=== PATIENT | female | born 1970 | race Caucasian/White ===

== ENCOUNTER 2021-09-28 12:54 | Emergency (ER) | payer BC, SELFPAY ==
[2021-09-28 13:14] VITALS: BP 143/91; PULSE 85; RESP 20; TEMP 36.2; O2SAT 96; BMI 30.7
--- NOTE | 2021-09-28 13:55 | ED_ITS ---
HPI - Headache General Chief Complaint: Headache/Migraine Stated Complaint: Headache for a week Time Seen by Provider: 09/28/21 13:15 History of Present Illness HPI Narrative: This 50-year-old female comes in reporting headache over the past week. She states that she does get headaches here in there but this 1 has persisted. She does not report any fever or neurologic deficit. She has tried home remedies without much relief. Related Data Home Medications Medication Instructions Recorded Confirmed fluoxetine 40 mg capsule mg 09/28/21 lamotrigine 200 mg tablet mg 09/28/21 Allergies Allergy/AdvReac Type Severity Reaction Status Date / Time prochlorperazine Allergy Verified 09/28/21 13:19 [From Compazine] Review of Systems Status of ROS: Reports: 10 or more systems reviewed and unremarkable except as noted in History and below Narrative: Constitutional: No fevers, no weight gain or loss. Eyes: No discharge. No vision changes. HENT: No congestion, no sore throat, no ear pain. Cardiovascular: No chest pain, no palpitations. Respiratory: No shortness of breath, no wheezes, no cough. Gastrointestinal: No abdominal pain, no vomiting, no diarrhea. Genitourinary: No dysuria, no hematuria. Musculoskeletal: Normal range of motion. Skin: No rashes, no pruritis. Neurological: No dizziness, weakness, sensory change, speech change. Endo/Heme/Allergies: No bruising or bleeding. No polydipsia. Pysch: no suicidality, no anxiety, no insomnia. All other systems reviewed and are negative. [facility] Medical History (Updated 09/28/21 @ 16:47 by Howard Herron MD) delivery delivered No significant past medical history 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 Smoking Status: Never smoker Do you use any of these nicotine containing products: None Second hand tobacco smoke exposure: No How often do you have a drink containing alcohol: 2-4 times a month How many standard drinks containing alcohol do you have on a typical day: 1 or 2 How often do you have six or more drinks on one occasion: Never AUDIT-C Alcohol total score: 2 Non-prescribed substance use: denies use Exam Narrative: Exam Narrative: Constitutional: Well-developed, well-nourished, no acute distress. HEENT: Normocephalic, atraumatic. Neck: Normal range of motion. Nontender. Supple. Heart: Regular. No murmurs. Normal rate. Intact distal pulses. Lungs: Clear to auscultation. No chest discomfort. No wheezes, rhonchi, or rales. Abdomen: Normal bowel sounds. Nontender. No rebound tenderness. Genitalia: Deferred. Back: No midline tenderness. Normal range of motion. Extremities: Normal range of motion. No injury. Skin: Intact. No rash. Warm. No erythema or pallor. Neurologic: No altered sensation. No weakness. Alert and oriented. Psychiatric: No suicidality. No anxiety or depression. No insomnia. Nursing notes and vitals signs are reviewed. Const: Vital Signs, click to edit/add: Vital Signs - 24 hr 09/28/21 13:14 09/28/21 14:37 09/28/21 15:26 Temperature 97.2 F L Pulse Rate [Right Pulse Oximeter] 85 62 73 Respiratory Rate 20 14 18 Blood Pressure [Ri ght Upper Arm] 143/91 H 105/63 105/63 Pulse Oximetry 96 92 09/28/21 16:31 Temperature Pulse Rate [Right Pulse Oximeter] 69 Respiratory Rate 18 Blood Pressure [Ri ght Upper Arm] 105/63 Pulse Oximetry 95 Course Vital Signs Vital signs: Initial Vital Signs Temperature 97.2 F L 09/28/21 13:14 Temperature Source Temporal Artery Scan 09/28/21 13:14 Pulse Rate 85 09/28/21 13:14 Pulse Rhythm 09/28/21 13:14 Respiratory Rate 20 09/28/21 13:14 Blood Pressure 143/91 H 09/28/21 13:14 Blood Pressure Mean 108 09/28/21 13:14 Pulse Oximetry 96 09/28/21 13:14 Oxygen Delivery Method 09/28/21 13:14 Vital Signs Temperature 97.2 F L 09/28/21 13:14 Pulse Rate 85 09/28/21 13:14 Respiratory Rate 20 09/28/21 13:14 Blood Pressure 143/91 H 09/28/21 13:14 Pulse Oximetry 96 09/28/21 13:14 Temperature 97.2 F L 09/28/21 13:14 Pulse Rate 69 09/28/21 16:31 Respiratory Rate 18 09/28/21 16:31 Blood Pressure 105/63 09/28/21 16:31 Pulse Oximetry 95 07/11/22 16:31 MDM - Headache MDM Narrative Medical decision making narrative: This patient comes in with persistent headache over the past week. She is not showing any neurologic deficits and does have a history of headache. Imaging and lab studies are not mandatory at this time. The patient declined any of those type of studies. An IV was established where she received IV doses of Zofran 4 mg, Toradol 30 mg, and Benadryl 50 mg. This brought some relief but it was minimal. She states that her headache went from a 7 to a 6 out of severity. She then received 20 mg of ketamine intravenously infused over 20-30 minutes. At the completion of this treatment she states that her headache was at 1/10 in severity. She is okay to be discharged home. Discharge Plan Discharge Clinical Impression: Headache Patient Disposition: Home, Self-Care Condition: Improved Instructions: Acute Headache (ED) Additional Instructions: Headache. Use [id number] medicines as needed and directed. Follow up with MD or return if recurrent or worsening symptoms happen. Prescriptions: No Action fluoxetine 40 mg capsule 0RF lamotrigine 200 mg tablet 0RF Follow Up/Referrals: Provider,Not a Local [Primary Care Provider] - Stand Alone Forms: [employer] Info Instructions
[2021-09-28] MEDS: KETOROLAC 30 MG/ML inj IVP (14:16)
[2021-09-28] MEDS: 0.9 % SODIUM CHLORIDE 1000 ml 1,000 ML IV (14:17)
[2021-09-28] MEDS: ONDANSETRON 2 MG/ML inj 4 MG IVP (14:17)
[2021-09-28] MEDS: METHYLPREDNISOLONE SOD SUCC 62.5 MG/ML (125) 125 MG IVP (14:17)
--- NOTE | 2021-09-28 14:30 | ED.NURSE ---
Placed iv IN LEFT HAND. during insertion patient became lightheaded, HR dropped to 45, BP 87/50. Fluids infusing, will wait to see patient feel better prior to starting mediations.
[2021-09-28 14:37] VITALS: BP 105/63; PULSE 62; RESP 14; O2SAT 92
[2021-09-28 15:26] VITALS: BP 105/63; PULSE 73; RESP 18
[2021-09-28] MEDS: KETAMINE HCL 20 MG in 0.9 % SODIUM CHLORIDE 100 ml 100 ML 300.6 MG IVPB (16:19)
[2021-09-28] MEDS: diphenhydrAMINE 50 MG/ML inj IVP (16:26)
[2021-09-28 16:31] VITALS: BP 105/63; PULSE 69; RESP 18; O2SAT 95
[2021-09-28 16:59] VITALS: BP 125/75; PULSE 68; RESP 18
== END 2021-09-28 17:00 | disposition home or self-care (01) ==
PROVIDERS: Emergency Provider Emergency Medicine Emergency Medical Services
DX: R51.9 Headache, unspecified (principal)
CPT/HCPCS: 96365; 96375; 99283; 99284; J1200; J1885; J2405; J2930; J3490; J7030

== ENCOUNTER 2022-05-26 08:35 | Outpatient (CLI) | payer BC, SELFPAY | END 2022-05-26 08:36 | disposition home or self-care (01) | PROVIDERS: Visit Provider Emergency Medicine | DX: Z00.00 Encounter for general adult medical examination without abnormal findings (principal); Z13.1 Encounter for screening for diabetes mellitus; Z13.6 Encounter for screening for cardiovascular disorders | CPT/HCPCS: 80048; 80061 ==

== ENCOUNTER 2022-06-01 07:02 | Outpatient (CLI) | payer BC, SELFPAY ==
--- NOTE | 2022-06-01 07:15 | CRLHL7_ITS ---
For Patients: As a result of the Century Cures Act, medical imaging exams and procedure reports are released immediately into your electronic medical record. You may view this report before your referring provider. If you have questions, please contact your health care provider. CLINICAL HISTORY: Enlarged uterus TECHNIQUE: 2D doss scale and color Doppler images were acquired of the pelvis using a transvaginal approach. FINDINGS: There is an intramural leiomyoma within the left fundus measuring 1.9 x 1.5 x 1.8 cm. The uterus measures 9.1 x 4.7 x 4.9 cm. The endometrial lining measures 10 mm in thickness. The left ovary measures 2.7 x 2.1 x 2.7 cm in size and the right ovary measures 2.6 x 1.6 x 2.4 cm. The ovaries demonstrate normal arterial and venous blood flow on color Doppler analysis. There are no suspicious fluid collections within the cul-de-sac. IMPRESSION: Left fundal intramural fibroid measuring 1.9 cm. Normal ovaries. No adnexal mass. Dictated by Nikko Kirk MD @ 06/01/2022 8:44:44 AM (Electronically Signed)
== END 2022-06-01 07:03 | disposition home or self-care (01) ==
LOC: US 07:02
PROVIDERS: Visit Provider Emergency Medicine
DX: N85.2 Hypertrophy of uterus (principal); D25.1 Intramural leiomyoma of uterus
CPT/HCPCS: 76830

== ENCOUNTER 2022-06-12 14:00 | Emergency (ER) | payer BC, SELFPAY ==
[2022-06-12 14:03] VITALS: BP 139/81; PULSE 91; RESP 18; TEMP 36.4; O2SAT 100; BMI 30.7
[2022-06-12] MEDS: lidocaine HCL 4 % TOP SOLN 50 ML BOTTLE TOPICAL (14:16)
[2022-06-12] MEDS: OXYMETAZOLINE (AFRIN) SOAK 1 EACH TOPICAL (14:17)
[2022-06-12 14:29] VITALS: BP 145/82; PULSE 91; O2SAT 99
--- NOTE | 2022-06-12 14:31 | ED_ITS ---
History of Present Illness General Date Seen: 06/12/22 Chief Complaint: Epistaxis/Nosebleed Stated Complaint: Nose bleed not stopping Time Seen by Provider: 06/12/22 14:02 Source: patient Mode of arrival: ambulatory Limitations: no limitations History of Present Illness HPI Narrative: Patient is a very nice 51-year-old female who since this morning has been suffering from epistaxis, out of her right nostril was coming out of both nostrils earlier today but now is only of the right 1, she has a history of following up with ENT, history of a previous cauterization, no history of falls injury, she is not on on any blood thinners, she has tried pressure. Denies any syncope, feeling of lightheadedness, history of anemia, it is definitely better than it was earlier Duration: Yes intermittent Pertinent past history: Yes history of previous nose bleed Context: Yes history of previous nose bleed Treatment prior to arrival: Yes nose pinching and Yes head leaning forward Related Data Home Medications Medication Instructions Recorded Confirmed fluoxetine 40 mg capsule 40 mg PO QDAY 05/26/22 05/26/22 lamotrigine 200 mg tablet 200 mg PO QDAY 05/26/22 05/26/22 Previous Rx's Medication Instructions Recorded peg 3350-electrolytes 236 240 ml PO ONCE #4,000 mL 05/28/22 gram-22.74 gram-6.74 gram-5.86 gram solution (Golytely) Allergies Allergy/AdvReac Type Severity Reaction Status Date / Time prochlorperazine Allergy Verified 05/26/22 08:15 [From Compazine] Review of Systems Status of ROS: Reports: 10 or more systems reviewed and unremarkable except as noted in History and below PFSH [facility] Medical History delivery delivered ?O82 - Encounter for delivery without indication (ICD-10) Encounter for well woman exam with routine gynecological exam ?Z01.419 - Encounter for gynecological examination (general) (routine) without abnormal findings (ICD-10) Epistaxis ?R04.0 - Epistaxis (ICD-10) Family history of colon cancer ?Z80.0 - Family history of malignant neoplasm of digestive organs (ICD-10) Fibroid uterus ?D25.9 - Leiomyoma of uterus, unspecified (ICD-10) Hyperlipidemia ?E78.5 - Hyperlipidemia, unspecified (ICD-10) No significant past medical history Pelvic mass ?R19.00 - Intra-abdominal and pelvic swelling, mass and lump, unspecified site (ICD-10) Screening for cervical cancer ?Z12.4 - Encounter for screening for malignant neoplasm of cervix (ICD-10) Screening for diabetes mellitus ?Z13.1 - Encounter for screening for diabetes mellitus (ICD-10) Screening for hyperlipidemia ?Z13.220 - Encounter for screening for lipoid disorders (ICD-10) Screening mammogram for breast cancer ?Z12.31 - Encounter for screening mammogram for malignant neoplasm of breast (ICD-10) Surgical History (Updated 05/21/22 @ 12:51 by Alena Isaac) History of section ?Z98.891 - History of uterine scar from previous surgery (ICD-10) Family History (Updated 05/26/22 @ 08:28 by Marce Hunter MD) Sister Asthma Maternal Grandmother Breast cancer, Onset Age: 75 Paternal Grandmother Diabetes Stroke, Onset Age: 80 Father High blood pressure Brother Colon cancer 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 (Updated 05/21/22 @ 12:55 by Alena Isaac) 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 , 2 kids, [employer], [employer] 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 alcohol Smoking Status: Never smoker Do you use any of these nicotine containing products: None Second hand tobacco smoke exposure: No How often do you have a drink containing alcohol: 2-4 times a month How many standard drinks containing alcohol do you have on a typical day: 1 or 2 How often do you have six or more drinks on one occasion: Never AUDIT-C Alcohol total score: 2 Non-prescribed substance use: denies use Little interest or pleasure in doing things: not at all Feeling down, depressed, or hopeless: not at all service: No Exam Narrative: Exam Narrative: On examination she is bleeding out of her right naris, she has a very small nose with very small nostrils I was able to have her place 2 x 2 pledget with the lidocaine and Afrin in the right nostril, she had used the Afrin earlier today, do the bleeding will check her after this is been in there for 15 minutes. Const: Vital Signs, click to edit/add: Vital Signs - 24 hr 06/12/22 14:03 06/12/22 14:29 06/12/22 15:33 Temperature 97.6 F Pulse Rate [Pulse Oximeter] 91 91 78 Respiratory Rate 18 Blood Pressure [Ri t Upper Arm] 139/81 145/82 H Pulse Oximetry 100 99 98 Oxygen Delivery Me thod Room Air Room Air Room Air Course Course Hospital Course: After we used pledjet of lidocaine with Afrin, I was able to cauterize 1 spot on the right nares over kiesselbachs area that was look like it was the bleeder, she tolerated this well. Watch 15 minutes. She did have some oozing when I recheck her, but at this point she just wants to use the nasal clamp and see how it goes, I do not think this is a bad idea, she will return if any further bad issues occur. Vital Signs Vital signs: Initial Vital Signs Temperature 97.6 F 06/12/22 14:03 Temperature Source Temporal Artery Scan 06/12/22 14:03 Pulse Rate 91 06/12/22 14:03 Pulse Rhythm Regular 06/12/22 14:03 Pulse Strength 3+ Normal 06/12/22 14:03 Respiratory Rate 18 06/12/22 14:03 Blood Pressure 139/81 06/12/22 14:03 Blood Pressure Mean 100 06/12/22 14:03 Blood Pressure Position Sitting 06/12/22 14:03 Pulse Oximetry 100 06/12/22 14:03 Oxygen Delivery Method Room Air 06/12/22 14:03 Vital Signs Temperature 97.6 F 06/12/22 14:03 Pulse Rate 91 06/12/22 14:03 Respiratory Rate 18 06/12/22 14:03 Blood Pressure 139/81 06/12/22 14:03 Pulse Oximetry 100 06/12/22 14:03 Oxygen Delivery Method Room Air 06/12/22 14:03 Temperature 97.6 F 06/12/22 14:03 Pulse Rate 78 06/12/22 15:33 Respiratory Rate 18 06/12/22 14:03 Blood Pressure 145/82 H 06/12/22 14:29 Pulse Oximetry 98 06/12/22 15:33 Oxygen Delivery Method Room Air 06/12/22 15:33 Discharge Plan Discharge Clinical Impression: Epistaxis Patient Disposition: Home w/ Parent or Adult Condition: Stable Instructions: Nosebleed (ED) Additional Instructions: Home,rest and use of vaseline daily in the nares. Follow up with as needed if ongoing issues or return to the ER. Prescriptions: No Action fluoxetine 40 mg capsule 40 mg PO QDAY lamotrigine 200 mg tablet 200 mg PO QDAY peg 3350-electrolytes [Golytely] 236-22.74-6.74 -5.86 gram recon soln 240 ml PO ONCE Qty: 4000 0RF Rx Instructions: until fecal effluent is clear Follow Up/Referrals: Provider,Not a Local [Referring] - Stand Alone Forms: [employer] Info Instructions
[2022-06-12 15:33] VITALS: PULSE 78; O2SAT 98
== END 2022-06-12 15:35 | disposition home or self-care (01) ==
PROVIDERS: Emergency Provider Family Medicine; PCP Emergency Medicine
DX: R04.0 Epistaxis (principal)
CPT/HCPCS: 30901; 99283; 99284; A9270

== ENCOUNTER 2022-06-13 14:31 | Emergency (ER) | payer BC, SELFPAY ==
[2022-06-13 14:40] VITALS: BP 140/89; PULSE 92; RESP 18; TEMP 36.7; O2SAT 98; BMI 30.7
--- NOTE | 2022-06-13 15:11 | ED.EPISTAXIS ---
History of Present Illness General Chief Complaint: Epistaxis/Nosebleed Stated Complaint: Bloody nose still dripping from, lightheaded Time Seen by Provider: 06/13/22 14:57 History of Present Illness HPI Narrative: This 51-year-old female was in yesterday with epistaxis and was treated with Afrin and had some cautery done in the right nostril. She reports some very minimal bleeding at times since then. She states that she has a headache and has some nasal congestion. She did place packing that was soaked in Afrin in each nostril and these are yet present. She does not report any symptoms of swallowing blood posteriorly. Related Data Home Medications Medication Instructions Recorded Confirmed fluoxetine 40 mg capsule 40 mg PO QDAY 05/26/22 06/13/22 lamotrigine 200 mg tablet 200 mg PO QDAY 05/26/22 06/13/22 Previous Rx's Medication Instructions Recorded peg 3350-electrolytes 236 240 ml PO ONCE #4,000 mL 05/28/22 gram-22.74 gram-6.74 gram-5.86 gram solution (Golytely) ketorolac 10 mg tablet 10 mg PO TID 5 days #15 tabs 06/13/22 ondansetron HCl 4 mg tablet 4 mg PO Q6H #15 tabs 06/13/22 Allergies Allergy/AdvReac Type Severity Reaction Status Date / Time prochlorperazine Allergy Verified 06/13/22 14:38 [From Compazine] Review of Systems Status of ROS: Reports: 10 or more systems reviewed and unremarkable except as noted in History and below Narrative: Constitutional: No fevers, no weight gain or loss. Eyes: No discharge. No vision changes. HENT: No sore throat, no ear pain. Nasal congestion with recent epistaxis. Cardiovascular: No chest pain, no palpitations. Respiratory: No shortness of breath, no wheezes, no cough. Gastrointestinal: No abdominal pain, no vomiting, no diarrhea. Genitourinary: No dysuria, no hematuria. Musculoskeletal: Normal range of motion. Skin: No rashes, no pruritis. Neurological: No dizziness, weakness, sensory change, speech change. Endo/Heme/Allergies: No bruising or bleeding. No polydipsia. Pysch: no suicidality, no anxiety, no insomnia. All other systems reviewed and are negative. [facility] Medical History delivery delivered ?O82 - Encounter for delivery without indication (ICD-10) Encounter for well woman exam with routine gynecological exam ?Z01.419 - Encounter for gynecological examination (general) (routine) without abnormal findings (ICD-10) Epistaxis ?R04.0 - Epistaxis (ICD-10) Family history of colon cancer ?Z80.0 - Family history of malignant neoplasm of digestive organs (ICD-10) Fibroid uterus ?D25.9 - Leiomyoma of uterus, unspecified (ICD-10) Hyperlipidemia ?E78.5 - Hyperlipidemia, unspecified (ICD-10) No significant past medical history Pelvic mass ?R19.00 - Intra-abdominal and pelvic swelling, mass and lump, unspecified site (ICD-10) Screening for cervical cancer ?Z12.4 - Encounter for screening for malignant neoplasm of cervix (ICD-10) Screening for diabetes mellitus ?Z13.1 - Encounter for screening for diabetes mellitus (ICD-10) Screening for hyperlipidemia ?Z13.220 - Encounter for screening for lipoid disorders (ICD-10) Screening mammogram for breast cancer ?Z12.31 - Encounter for screening mammogram for malignant neoplasm of breast (ICD-10) Surgical History (Updated 05/21/22 @ 12:51 by Alena Isaac) History of section ?Z98.891 - History of uterine scar from previous surgery (ICD-10) Family History (Updated 05/26/22 @ 08:28 by Marce Hunter MD) Sister Asthma Maternal Grandmother Breast cancer, Onset Age: 75 Paternal Grandmother Diabetes Stroke, Onset Age: 80 Father High blood pressure Brother Colon cancer 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 (Updated 05/21/22 @ 12:55 by Alena Isaac) 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 , 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, 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[employer], 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, 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 alcohol Smoking Status: Never smoker Do you use any of these nicotine containing products: None Second hand tobacco smoke exposure: No How often do you have a drink containing alcohol: 2-4 times a month How many standard drinks containing alcohol do you have on a typical day: 1 or 2 How often do you have six or more drinks on one occasion: Never AUDIT-C Alcohol total score: 2 Non-prescribed substance use: denies use Little interest or pleasure in doing things: not at all Feeling down, depressed, or hopeless: not at all service: No Exam Narrative: Exam Narrative: Constitutional: Well-developed, well-nourished, no acute distress. HEENT: Normocephalic, atraumatic. No active bleeding from either nares. There is some evidence of cautery in the right nostril. Oropharynx appears normal without any clot or sign of bleeding posteriorly. Neck: Normal range of motion. Nontender. Supple. Heart: Regular. No murmurs. Normal rate. Intact distal pulses. Lungs: Clear to auscultation. No chest discomfort. No wheezes, rhonchi, or rales. Abdomen: Normal bowel sounds. Nontender. No rebound tenderness. Genitalia: Deferred. Back: No midline tenderness. Normal range of motion. Extremities: Normal range of motion. No injury. Skin: Intact. No rash. Warm. No erythema or pallor. Neurologic: No altered sensation. No weakness. Alert and oriented. Psychiatric: No suicidality. No anxiety or depression. No insomnia. Nursing notes and vitals signs are reviewed. Const: Vital Signs, click to edit/add: Vital Signs - 24 hr 06/13/22 14:40 Temperature 98.1 F Pulse Rate [Pulse Oximeter] 92 Respiratory Rate 18 Blood Pressure [Ri ght Upper Arm] 140/89 H Pulse Oximetry 98 Oxygen Delivery Me thod Room Air Course Vital Signs Vital signs: Initial Vital Signs Temperature 98.1 F 06/13/22 14:40 Temperature Source Temporal Artery Scan 06/13/22 14:40 Pulse Rate 92 06/13/22 14:40 Respiratory Rate 18 06/13/22 14:40 Blood Pressure 140/89 H 06/13/22 14:40 Blood Pressure Mean 106 06/13/22 14:40 Blood Pressure Position Sitting 06/13/22 14:40 Pulse Oximetry 98 06/13/22 14:40 Oxygen Delivery Method Room Air 06/13/22 14:40 Vital Signs Temperature 98.1 F 06/13/22 14:40 Pulse Rate 92 06/13/22 14:40 Respiratory Rate 18 06/13/22 14:40 Blood Pressure 140/89 H 06/13/22 14:40 Pulse Oximetry 98 06/13/22 14:40 Oxygen Delivery Method Room Air 06/13/22 14:40 Temperature 98.1 F 06/13/22 14:40 Pulse Rate 92 06/13/22 14:40 Respiratory Rate 18 06/13/22 14:40 Blood Pressure 140/89 H 06/13/22 14:40 Pulse Oximetry 98 06/13/22 14:40 Oxygen Delivery Method Room Air 06/13/22 14:40 MDM - Epistaxis MDM Narrative Medical decision making narrative: This patient had epistaxis that was treated yesterday. I did use a nasal tongs to remove the packing from each nostril. There is no sign of active bleeding in the nasal mucosa appears to be healing properly. I encouraged her to continue this process and be very gentle with her nose. She does have Afrin and packing and a nasal clamp that can be used if needed. She knows how to follow-up with [facility] Th[facility] if needed and has done this in the past with a previous nose was bleed long ago. Discharge Plan Discharge Clinical Impression: Anterior epistaxis Patient Disposition: Home, Self-Care Condition: Improved Additional Instructions: Take medication as needed and directed. Follow up with MD or return if worsening. Prescriptions: New ondansetron HCl 4 mg tablet 4 mg PO Q6H Qty: 15 0RF ketorolac 10 mg tablet 10 mg PO TID 5 Days Qty: 15 0RF No Action fluoxetine 40 mg capsule 40 mg PO QDAY lamotrigine 200 mg tablet 200 mg PO QDAY peg 3350-electrolytes [Golytely] 236-22.74-6.74 -5.86 gram recon soln 240 ml PO ONCE Qty: 4000 0RF Rx Instructions: until fecal effluent is clear Follow Up/Referrals: Marce Hunter MD [Primary Care Provider] - Stand Alone Forms: [employer] Info Instructions
[2022-06-13] MEDS: KETOROLAC 10 MG TABLET PO (15:24)
[2022-06-13] MEDS: ONDANSETRON ODT 4 MG TAB PO (15:25)
== END 2022-06-13 15:34 | disposition home or self-care (01) ==
LOC: ED 15:26
PROVIDERS: Emergency Provider Emergency Medicine Emergency Medical Services; PCP Emergency Medicine
DX: R04.0 Epistaxis (principal)
CPT/HCPCS: 99282; 99283; 99284; A9270

== ENCOUNTER 2022-06-25 06:54 | Outpatient (CLI) | payer BC, SELFPAY ==
--- NOTE | 2022-06-25 09:20 | W.ANESCHARGE ---
Anesthesia Charges Start Date/Time Anesthesia Start Date: 06/25/22 Anesthesia Start Time: 08:44 Stop Date/Time Anesthesia Stop Date: 06/25/22 Anesthesia Stop Time: 09:17
== END 2022-06-25 06:55 | disposition home or self-care (01) ==
PROVIDERS: PCP Emergency Medicine; Visit Provider Internal Medicine
DX: Z12.11 Encounter for screening for malignant neoplasm of colon (principal); Z80.0 Family history of malignant neoplasm of digestive organs
CPT/HCPCS: 00812; 45378; J2405; J2704

== ENCOUNTER 2022-12-01 22:44 | Emergency (ER) | payer BC, SELFPAY ==
[2022-12-01 22:50] VITALS: BP 135/85; PULSE 104; RESP 18; TEMP 36.6; O2SAT 96; BMI 31.5
--- NOTE | 2022-12-01 22:50 | CRLHL7_ITS ---
For Patients: As a result of the Century Cures Act, medical imaging exams and procedure reports are released immediately into your electronic medical record. You may view this report before your referring provider. If you have questions, please contact your health care provider. INDICATION: Right ankle pain, trauma. TECHNIQUE: Right ankle radiographs, 3 views. COMPARISON: None. FINDINGS: No acute fractures or dislocation. The talar dome remains smooth. The ankle mortise joint is preserved. Small plantar calcaneal osteophyte. No significant soft tissue edema or radiopaque foreign bodies. IMPRESSION: No acute fractures or dislocation. Dictated by Luis Mendoza MD @ 12/01/2022 11:40:54 PM (Electronically Signed)
[2022-12-01 22:53] VITALS: PULSE 103
[2022-12-01 23:57] VITALS: BP 124/74; PULSE 98; RESP 18; TEMP 36.6; O2SAT 96
[2022-12-02 00:12] VITALS: BP 124/74; PULSE 98; RESP 18; TEMP 36.6
--- NOTE | 2022-12-07 12:50 | ED_ITS ---
HPI - General Adult General Chief complaint: Extremity Pain/Injury, Lower Stated complaint: possible broken right leg Time Seen by Provider: 12/01/22 23:40 History of Present Illness HPI narrative: standing on porch, fell off last step and rolled R ankle. swelling in ankle joint. denies any foot or leg injury. happened at 5, took 1gm tylenol 2200 and came in.t 51-year-old woman presenting to the emergency depart with complaint of right ankle pain. She fell off the last step and describes an inversion injury to the right ankle. Has noted some swelling. Is able to barely bear little bit of weight. Did take some acetaminophen. No other injuries sustained. Related Data Home Medications Medication Instructions Recorded Confirmed fluoxetine 40 mg capsule 40 mg PO QDAY 05/26/22 12/09/22 lamotrigine 200 mg tablet 200 mg PO QDAY 05/26/22 12/09/22 atomoxetine 40 mg capsule 40 mg PO QAM 08/05/22 12/09/22 Previous Rx's Medication Instructions Recorded polyethylene glycol 3350 17 17 g PO QDAY #510 grams 08/05/22 gram/dose oral powder (Miralax) Allergies Allergy/AdvReac Type Severity Reaction Status Date / Time prochlorperazine Allergy Verified 12/09/22 13:42 [From Compazine] Review of Systems Status of ROS: Reports: 6 or more systems reviewed and unremarkable except as noted in History and below PFSH [facility] Medical History Fibroid uterus ?D25.9 - Leiomyoma of uterus, unspecified (ICD-10) Hyperlipidemia ?E78.5 - Hyperlipidemia, unspecified (ICD-10) Pelvic mass ?R19.00 - Intra-abdominal and pelvic swelling, mass and lump, unspecified site (ICD-10) Screening mammogram for breast cancer ?Z12.31 - Encounter for screening mammogram for malignant neoplasm of breast (ICD-10) Screening for diabetes mellitus ?Z13.1 - Encounter for screening for diabetes mellitus (ICD-10) Screening for hyperlipidemia ?Z13.220 - Encounter for screening for lipoid disorders (ICD-10) Screening for cervical cancer ?Z12.4 - Encounter for screening for malignant neoplasm of cervix (ICD-10) Family history of colon cancer ?Z80.0 - Family history of malignant neoplasm of digestive organs (ICD-10) Epistaxis ?R04.0 - Epistaxis (ICD-10) Encounter for well woman exam with routine gynecological exam ?Z01.419 - Encounter for gynecological examination (general) (routine) without abnormal findings (ICD-10) delivery delivered ?O82 - Encounter for delivery without indication (ICD-10) No significant past medical history Surgical History (Updated 05/21/22 @ 12:51 by Alena Isaac) History of section ?Z98.891 - History of uterine scar from previous surgery (ICD-10) Family History Colon cancer Brother Diabetes Paternal Grandmother Breast cancer Maternal Grandmother, Onset Age: 75 High blood pressure Father Stroke Paternal Grandmother, Onset Age: 80 Asthma Sister 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 , 2 kids, [employer], [employer], 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 alcohol Smoking Status: Never smoker Do you use any of these nicotine containing products: None Second hand tobacco smoke exposure: No How often do you have a drink containing alcohol: 2-4 times a month How many standard drinks containing alcohol do you have on a typical day: 1 or 2 How often do you have six or more drinks on one occasion: Never AUDIT-C Alcohol total score: 2 Non-prescribed substance use: denies use Little interest or pleasure in doing things: not at all Feeling down, depressed, or hopeless: not at all service: No Exam Narrative: Exam Narrative: Pleasant. NAD. Skin is warm and dry. Breathing easily. Clearly uncomfortable. Examination of the right ankle is without laxity to varus or valgus stressors or AP drawer. There is no tenderness over the navicular bone or base of 5th metatarsal. There is tenderness and swelling over the posterior bony aspect of the lateral malleolus and the medial malleolus. Const: Documenting provider has reviewed patient's vital signs: yes Course Vital Signs Vital signs: Initial Vital Signs Temperature 97.8 F 12/01/22 22:50 Temperature Source Temporal Artery Scan 12/01/22 22:50 Pulse Rate 104 H 12/01/22 22:50 Respiratory Rate 18 12/01/22 22:50 Blood Pressure 135/85 12/01/22 22:50 Blood Pressure Mean 101 12/01/22 22:50 Blood Pressure Position Sitting 12/01/22 22:50 Pulse Oximetry 96 12/01/22 22:50 Oxygen Delivery Method Room Air 12/01/22 22:50 Vital Signs Temperature 97.8 F 12/01/22 22:50 Pulse Rate 104 H 12/01/22 22:50 Respiratory Rate 18 12/01/22 22:50 Blood Pressure 135/85 12/01/22 22:50 Pulse Oximetry 96 12/01/22 22:50 Oxygen Delivery Method Room Air 12/01/22 22:50 Temperature 97.8 F 12/02/22 00:12 Pulse Rate 98 12/02/22 00:12 Respiratory Rate 18 12/02/22 00:12 Blood Pressure 124/74 12/02/22 00:12 Pulse Oximetry 96 12/01/22 23:57 Oxygen Delivery Method Room Air 12/01/22 23:57 Medical Decision Making MDM Narrative Medical decision making narrative: I think it would be prudent to x-ray this ankle. We did discuss [place] ankle rules. Ice. Review of x-rays by me shows maintained mortise. I do not appreciate any acute bony abnormality. Returned to give her a gel cast. Wilfrid wrap. Crutches. See patient discharge plan. Medical Records Medical records reviewed: Yes I reviewed the patient's medical records Discharge Plan Discharge Clinical Impression: Ankle sprain Patient Disposition: Home, Self-Care Condition: Improved Additional Instructions: Ice a few times daily over the next few days and then whenever it seems to be hurting or more irritated. Ibuprofen naproxen or acetaminophen, elevation, compression. Use the crutches to avoid walking over the next couple of days. After few days you might apply the gel cast to encourage some early mobility. See handout for ankle sprain rehabilitation. Follow-up in a week if simply not improved. As discussed, [place] from [facility] if needed. Prescriptions: No Action atomoxetine 40 mg capsule 40 mg PO QAM polyethylene glycol 3350 [Miralax] 17 gram/dose powder 17 g PO QDAY Qty: 510 0RF fluoxetine 40 mg capsule 40 mg PO QDAY lamotrigine 200 mg tablet 200 mg PO QDAY Follow Up/Referrals: Marce Hunter MD [Primary Care Provider] - Stand Alone Forms: [employer] Info Instructions
== END 2022-12-02 00:13 | disposition home or self-care (01) ==
LOC: ED 12-02 00:02
PROVIDERS: Emergency Provider Family Medicine; PCP Emergency Medicine
DX: S93.401A Sprain of unspecified ligament of right ankle, initial encounter (principal)
CPT/HCPCS: 73610; 99283; 99284

== ENCOUNTER 2022-12-09 15:24 | Emergency (ER) | payer BC, SELFPAY ==
[2022-12-09 15:30] VITALS: BP 130/83; PULSE 97; RESP 14; TEMP 35.9; O2SAT 98; BMI 31.5
--- NOTE | 2022-12-09 16:24 | CRLHL7_ITS ---
For Patients: As a result of the Century Cures Act, medical imaging exams and procedure reports are released immediately into your electronic medical record. You may view this report before your referring provider. If you have questions, please contact your health care provider. INDICATION: Right ankle pain. TECHNIQUE: Ultrasound venous duplex lower right extremity. Compression venous exam was performed using doss-scale, color Doppler, and spectral Doppler imaging. COMPARISON: None. FINDINGS: Sonographic imaging demonstrates the right common femoral, deep femoral, superficial femoral, popliteal, posterior tibial and greater saphenous and the contralateral left common femoral veins to be fully compressible with normal color Doppler blood flow. IMPRESSION: Normal right lower extremity venous ultrasound, no evidence of deep venous thrombosis. Dictated by Genoveva Hamlin MD @ 12/09/2022 6:03:30 PM (Electronically Signed)
--- NOTE | 2022-12-09 16:38 | ED.GENADULT ---
HPI - General Adult General Date Seen: 12/09/22 Chief complaint: Dizziness/Vertigo Stated complaint: possible clot Time Seen by Provider: 12/09/22 16:05 Source: patient and RN notes reviewed Mode of arrival: ambulatory Limitations: no limitations History of Present Illness HPI narrative: Patient is a 52-year-old woman sent from clinic for evaluation of possible DVT. A week ago she had an injury to her right ankle, x-rays were negative and she has had a stirrup splint. She had gone in to clinic today because she feels that the stirrup splint is uncomfortable, maybe has cause some additional bruising on the sides of her ankle and so she had gone to clinic because she wanted to boot. While there, she noted that she had been feeling a little intermittently lightheaded, no fainting, no chest pain, shortness of breath, abdominal pain, fevers, and she really has not had any other pain in the leg aside from at the ankle where her injury is. She does not have a personal history of DVT, does not smoke, is not on any oral contraceptives. Her dad does have history of DVT apparently. She was not noted to have abnormal vital signs. She was given juice and felt improved, but had a D-dimer there which was 0.8 and was referred here for further evaluation. She is fairly short with me, is not happy about being here. Related Data Home Medications Medication Instructions Recorded Confirmed fluoxetine 40 mg capsule 40 mg PO QDAY 05/26/22 12/09/22 lamotrigine 200 mg tablet 200 mg PO QDAY 05/26/22 12/09/22 atomoxetine 40 mg capsule 40 mg PO QAM 08/05/22 12/09/22 Previous Rx's Medication Instructions Recorded polyethylene glycol 3350 17 17 g PO QDAY #510 grams 08/05/22 gram/dose oral powder (Miralax) Allergies Allergy/AdvReac Type Severity Reaction Status Date / Time prochlorperazine Allergy Verified 12/09/22 13:42 [From Compazine] Review of Systems Status of ROS: Reports: 6 or more systems reviewed and unremarkable except as noted in History and below [facility] Medical History Fibroid uterus ?D25.9 - Leiomyoma of uterus, unspecified (ICD-10) Hyperlipidemia ?E78.5 - Hyperlipidemia, unspecified (ICD-10) Pelvic mass ?R19.00 - Intra-abdominal and pelvic swelling, mass and lump, unspecified site (ICD-10) Screening mammogram for breast cancer ?Z12.31 - Encounter for screening mammogram for malignant neoplasm of breast (ICD-10) Screening for diabetes mellitus ?Z13.1 - Encounter for screening for diabetes mellitus (ICD-10) Screening for hyperlipidemia ?Z13.220 - Encounter for screening for lipoid disorders (ICD-10) Screening for cervical cancer ?Z12.4 - Encounter for screening for malignant neoplasm of cervix (ICD-10) Family history of colon cancer ?Z80.0 - Family history of malignant neoplasm of digestive organs (ICD-10) Epistaxis ?R04.0 - Epistaxis (ICD-10) Encounter for well woman exam with routine gynecological exam ?Z01.419 - Encounter for gynecological examination (general) (routine) without abnormal findings (ICD-10) delivery delivered ?O82 - Encounter for delivery without indication (ICD-10) No significant past medical history Surgical History History of section ?Z98.891 - History of uterine scar from previous surgery (ICD-10) Family History Sister Asthma Maternal Grandmother Breast cancer, Onset Age: 75 Paternal Grandmother Diabetes Stroke, Onset Age: 80 Father High blood pressure Brother Colon cancer 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 , 2 kids, [employer], [employer], 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 alcohol Smoking Status: Never smoker Do you use any of these nicotine containing products: None Second hand tobacco smoke exposure: No How often do you have a drink containing alcohol: 2-4 times a month How many standard drinks containing alcohol do you have on a typical day: 1 or 2 How often do you have six or more drinks on one occasion: Never AUDIT-C Alcohol total score: 2 Non-prescribed substance use: denies use Little interest or pleasure in doing things: not at all Feeling down, depressed, or hopeless: not at all service: No Exam Narrative: Exam Narrative: Vital signs as noted above. In general, an alert, well-appearing patient. Breathing easily. Head: Normocephalic, atraumatic. Eyes: Pupils are equal reactive. Extraocular movements are full. Conjunctivae are normal. ENT: Mucous membranes are moist. Throat is normal. Neck: Supple without lymphadenopathy. Heart: Regular rate and rhythm. No murmur or rub. Lungs: Clear bilaterally. No increased work of breathing, crackles or wheezes. Abdomen: Soft and nontender. No organomegaly. Extremities: Well perfused. No edema. No calf tenderness. Pulses intact. Overall she has some mild bruising and tenderness over the lateral and medial malleoli on the right ankle. Neurologic: Patient is alert and oriented to person and place. Speech is fluent. Face is symmetric. Moves all extremities equally. Affect: Normal. Skin: Warm and dry. Well perfused. Const: Vital Signs, click to edit/add: Vital Signs - 24 hr 12/09/22 15:30 Temperature 96.6 F L Pulse Rate [Pulse Oximeter] 97 Respiratory Rate 14 Blood Pressure [Ri ght Upper Arm] 130/83 Pulse Oximetry 98 Oxygen Delivery Me thod Room Air Documenting provider has reviewed patient's vital signs: yes Course Course ED Course: Reviewed her records, D-dimer is mentioned was checked in clinic and was 0.8. She had an EKG there as well which was reportedly unremarkable. She has nonspecific complaints of intermittent lightheadedness without fainting or other symptoms, she has normal vital signs, she is PERC negative aside from her age of 52 although she did just turn 52 yesterday. Will go ahead and order a Doppler of the right leg. Given absence of any other symptoms of PE, I think in the Doppler is negative would simply treat her ankle sprain. She did have a CBC in clinic, hemoglobin was normal. Formal radiology read is pending but tech reports that the Doppler is negative for DVT. Patient is eager to go so I will follow-up on the radiology read but I am going to go ahead and let her go home. My suspicion for PE is very low, and I think with a negative Doppler she does not need additional imaging at this time. Did discuss reasons to return including chest pain, shortness of breath, fainting etcetera. Otherwise, I gave her the boot that she had gone to clinic for in the 1st place, talked about the fact that at this point she should be making sure to come out of the boot at least once or twice a day and doing some strengthening and stretching exercises for her ankle. She says she plans to use the boot just while she standing at work. Primary care follow-up if needed for ongoing problems with the ankle. Vital Signs Vital signs: Initial Vital Signs Temperature 96.6 F L 12/09/22 15:30 Temperature Source Temporal Artery Scan 12/09/22 15:30 Pulse Rate 97 12/09/22 15:30 Pulse Rhythm Regular 12/09/22 15:30 Respiratory Rate 14 12/09/22 15:30 Blood Pressure 130/83 12/09/22 15:30 Blood Pressure Mean 98 12/09/22 15:30 Pulse Oximetry 98 12/09/22 15:30 Oxygen Delivery Method Room Air 12/09/22 15:30 Vital Signs Temperature 96.6 F L 12/09/22 15:30 Pulse Rate 97 12/09/22 15:30 Respiratory Rate 14 12/09/22 15:30 Blood Pressure 130/83 12/09/22 15:30 Pulse Oximetry 98 12/09/22 15:30 Oxygen Delivery Method Room Air 12/09/22 15:30 Temperature 96.6 F L 12/09/22 15:30 Pulse Rate 97 12/09/22 15:30 Respiratory Rate 14 12/09/22 15:30 Blood Pressure 130/83 12/09/22 15:30 Pulse Oximetry 98 12/09/22 15:30 Oxygen Delivery Method Room Air 12/09/22 15:30 Discharge Plan Discharge Clinical Impression: Injury of ankle, right Patient Disposition: Home, Self-Care Condition: Stable Instructions: Ankle Sprain (ED) Additional Instructions: Return for new symptoms such as shortness of breath, chest pain, fainting. Otherwise, use boot judiciously, I would recommend making sure that you are doing some strengthening and stretching exercises daily out of the boot. Prescriptions: No Action atomoxetine 40 mg capsule 40 mg PO QAM polyethylene glycol 3350 [Miralax] 17 gram/dose powder 17 g PO QDAY Qty: 510 0RF fluoxetine 40 mg capsule 40 mg PO QDAY lamotrigine 200 mg tablet 200 mg PO QDAY Follow Up/Referrals: Marce Hunter MD [Primary Care Provider] - Stand Alone Forms: [facility] Info Instructions
--- NOTE | 2022-12-09 17:45 | ED.NURSE ---
Patient was fitted with walking boot prior to discharge.
== END 2022-12-09 17:53 | disposition home or self-care (01) ==
LOC: ED 17:22
PROVIDERS: Emergency Provider Emergency Medicine; PCP Emergency Medicine
DX: S99.911A Unspecified injury of right ankle, initial encounter (principal)
CPT/HCPCS: 93971; 99283; 99284

== ENCOUNTER 2023-01-04 02:07 | Emergency (ER) | payer BC, SELFPAY ==
[2023-01-04 02:14] VITALS: BP 160/103; PULSE 114; RESP 18; TEMP 36.7; O2SAT 98; BMI 31.5
--- NOTE | 2023-01-04 02:38 | ED.EPISTAXIS ---
History of Present Illness General Chief Complaint: Epistaxis/Nosebleed Stated Complaint: Bloody Nose Time Seen by Provider: 01/04/23 02:21 Source: patient Mode of arrival: ambulatory Limitations: no limitations History of Present Illness HPI Narrative: 52-year-old female, not on anticoagulants with no trauma presents the emergency department with a right-sided nose bleed for the last 90 minutes. She is prone to nosebleeds, last had nasal cautery about 6-7 months ago. Has tried applying a nasal clamp with no significant improvement in her symptoms. Has not tried Afrin or other home treatments. Has some mild nausea from the bleeding. No vomiting. No bloody stools. Feels a little lightheaded but no significant weakness. Was able to drive herself here with no complications. No prior history of nasal surgeries. Past medical history notable for mental health issues. Reports her home medications are atomoxetine, fluoxetine and lamotrigine. No recent adjustments. ROS notable for the HEENT symptoms as above, otherwise denies any other generalized, HEENT, musculoskeletal or GI changes. Related Data Home Medications Medication Instructions Recorded Confirmed fluoxetine 40 mg capsule 40 mg PO QDAY 05/26/22 01/04/23 lamotrigine 200 mg tablet 200 mg PO QDAY 05/26/22 01/04/23 atomoxetine 40 mg capsule 40 mg PO QAM 08/05/22 01/04/23 Allergies Allergy/AdvReac Type Severity Reaction Status Date / Time prochlorperazine Allergy Verified 01/04/23 02:16 [From Compazine] [facility] Medical History Fibroid uterus ?D25.9 - Leiomyoma of uterus, unspecified (ICD-10) Hyperlipidemia ?E78.5 - Hyperlipidemia, unspecified (ICD-10) Pelvic mass ?R19.00 - Intra-abdominal and pelvic swelling, mass and lump, unspecified site (ICD-10) Screening mammogram for breast cancer ?Z12.31 - Encounter for screening mammogram for malignant neoplasm of breast (ICD-10) Screening for diabetes mellitus ?Z13.1 - Encounter for screening for diabetes mellitus (ICD-10) Screening for hyperlipidemia ?Z13.220 - Encounter for screening for lipoid disorders (ICD-10) Screening for cervical cancer ?Z12.4 - Encounter for screening for malignant neoplasm of cervix (ICD-10) Family history of colon cancer ?Z80.0 - Family history of malignant neoplasm of digestive organs (ICD-10) Epistaxis ?R04.0 - Epistaxis (ICD-10) Encounter for well woman exam with routine gynecological exam ?Z01.419 - Encounter for gynecological examination (general) (routine) without abnormal findings (ICD-10) delivery delivered ?O82 - Encounter for delivery without indication (ICD-10) No significant past medical history Surgical History History of section ?Z98.891 - History of uterine scar from previous surgery (ICD-10) Family History Sister Asthma Maternal Grandmother Breast cancer, Onset Age: 75 Paternal Grandmother Diabetes Stroke, Onset Age: 80 Father High blood pressure Brother Colon cancer 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 , 2 kids, [employer] system, [employer], 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 alcohol Smoking Status: Never smoker Do you use any of these nicotine containing products: None Second hand tobacco smoke exposure: No How many standard drinks containing alcohol do you have on a typical day: 1 or 2 AUDIT-C Alcohol total score: 0 Non-prescribed substance use: denies use Little interest or pleasure in doing things: not at all Feeling down, depressed, or hopeless: not at all service: No Exam Const: Vital Signs, click to edit/add: Vital Signs - 24 hr 01/04/23 02:14 Temperature 98.1 F Pulse Rate [Pulse Oximeter] 114 H Respiratory Rate 18 Blood Pressure [Ri ght Upper Arm] 160/103 H Pulse Oximetry 98 Oxygen Delivery Me thod Room Air Documenting provider has reviewed patient's vital signs: yes Common normals: no apparent distress General appearance: cooperative and comfortable HENMT: Common normals: normocephalic, head/scalp atraumatic and external nose normal Head and scalp: normocephalic and atraumatic Face and sinus: normal facial exam Nose: external nose normal Mouth: oral and palatal mucosa normal Throat: posterior oropharynx normal Other: Nasal clamp applied to the external nose but no obvious bruising or trauma. Oropharynx with acyanotic lips, moist membranes, no bleeding down the back of the nose. Nasal clamp is gently removed, left side examined 1st, good vascular supply with no obvious gross bleeding. Right-sided examine with pinpoint bleeding at the upper in her anterior nasal septum. Afrin is applied and nasal clamp reapplied. Eye: Common normals: conjunctivae normal General eye: normal appearance of both eyes Conjunctiva: conjunctiva(e) normal Neck & C-Spine: Common normals: no lymphadenopathy General: normal visual inspection Resp: Common normals: normal respiratory effort Effort & inspection: able to speak in complete sentences Psych: Common normals: speech normal Attitude: engaged Activity/motor behavior: appropriate eye contact Speech: normal speech Insight: insight good Judgement: judgment good Skin: Common normals: no rashes or lesions noted General skin exam: no rashes or lesions noted Course Course ED Course: Pinpoint bleeding noted from nasal septum. Bleeding has not stopped with appropriate pressure. Discussed nasal cautery since it is such a small area verses nasal packing. She was agreeable to a trial of nasal cautery. Discussed risks and benefits including perforation, infection, etc.. She reports good luck from this in the past. Verbal consent obtained. Procedure: Nasal cautery. 20% benzocaine spray was applied to the right nostril with good anesthesia. Nasal cautery was performed to about an 5 mm area over the area of previous pinpoint bleeding. This was well tolerated. Re-examined after 10 minutes with no further signs of bleeding. New nasal clamp given, remaining bottle of Afrin given. Counseled on home management and typical alarm symptoms. Expect lots of watery/doss discharge for the next few days. No blowing the nose, gentle dabs only. No topical Vaseline or antibiotic ointment. Signs and symptoms of infection reviewed. If bleeding restarts, reapply Afrin and nasal clamp, come back to the ED if it does not ceased within 30 minutes. Slight amount of black tarry stools can be common in should not be of worry. Should resolve within a couple of days. Okay to use Tylenol for discomfort. Vital Signs Vital signs: Initial Vital Signs Temperature 98.1 F 01/04/23 02:14 Temperature Source Temporal Artery Scan 01/04/23 02:14 Pulse Rate 114 H 01/04/23 02:14 Respiratory Rate 18 01/04/23 02:14 Blood Pressure 160/103 H 01/04/23 02:14 Blood Pressure Mean 122 H 01/04/23 02:14 Blood Pressure Position Sitting 01/04/23 02:14 Pulse Oximetry 98 01/04/23 02:14 Oxygen Delivery Method Room Air 01/04/23 02:14 Vital Signs Temperature 98.1 F 01/04/23 02:14 Pulse Rate 114 H 01/04/23 02:14 Respiratory Rate 18 01/04/23 02:14 Blood Pressure 160/103 H 01/04/23 02:14 Pulse Oximetry 98 01/04/23 02:14 Oxygen Delivery Method Room Air 01/04/23 02:14 Temperature 98.1 F 01/04/23 02:14 Pulse Rate 114 H 01/04/23 02:14 Respiratory Rate 18 01/04/23 02:14 Blood Pressure 160/103 H 01/04/23 02:14 Pulse Oximetry 98 01/04/23 02:14 Oxygen Delivery Method Room Air 01/04/23 02:14 Discharge Plan Discharge Clinical Impression: History of nasal cauterization, Hemorrhage from nose Patient Disposition: Home, Self-Care Condition: Improved Instructions: Nosebleed (ED) Additional Instructions: As we discussed, there was a pinpoint area of bleeding on the upper inner right side of the nasal septum. I was able to cauterize this and the bleeding has stopped. The nose will be quite tender for a few days annual likely have lots of watery/doss discharge. No blowing the nose for 3 days. You may very gently blot with a Kleenex only. Do not apply any Vaseline, antibiotic ointment or other topical treatments. If the bleeding restarts, spray Afrin in the nostril and reapply your nasal clamp for 30 minutes. If the bleeding does not stop, come back to the emergency department. Activity Level: Activity as Tolerated Discharge Diet: Regular Prescriptions: No Action atomoxetine 40 mg capsule 40 mg PO QAM fluoxetine 40 mg capsule 40 mg PO QDAY lamotrigine 200 mg tablet 200 mg PO QDAY Follow Up/Referrals: Marce Hunter MD [Primary Care Provider] - Stand Alone Forms: [facility] Info Instructions
[2023-01-04] MEDS: OXYMETAZOLINE 0.05% NASAL SPRAY 1 SPRAY NOSTRIL-B (02:44)
[2023-01-04] MEDS: SILVER NITRATE APPLICATOR 1 EACH STICK..EA. TOPICAL (02:44)
[2023-01-04] MEDS: BENZOCAINE 20 % SPRAY 1 EACH NOSTRIL-R (02:44)
== END 2023-01-04 03:08 | disposition home or self-care (01) ==
LOC: ED 02:45
PROVIDERS: Emergency Provider Family Medicine; PCP Emergency Medicine
DX: R04.0 Epistaxis (principal)
CPT/HCPCS: 30901; 99283; A9270

== ENCOUNTER 2023-01-08 07:44 | Emergency (ER) | payer BC, SELFPAY ==
[2023-01-08 07:49] VITALS: BP 161/94; PULSE 95; RESP 18; TEMP 36.6; O2SAT 99; BMI 31.5
--- NOTE | 2023-01-08 08:16 | ED.EPISTAXIS ---
History of Present Illness General Chief Complaint: Epistaxis/Nosebleed Stated Complaint: bloody nose Time Seen by Provider: 01/08/23 07:52 History of Present Illness HPI Narrative: This 52-year-old female comes in with epistaxis in the right nostril. She was seen 4 days ago with the same nose bleed and at that time had cautery done. She states that it began bleeding again yesterday and then stopped. Today at about 5:00 a.m., 3 hours prior to arrival, she began bleeding again. At the time of my visit here she was wearing a nasal clamp and this has stop bleeding. She is not on any blood thinners. She has had nosebleeds in the past. Related Data Home Medications Medication Instructions Recorded Confirmed fluoxetine 40 mg capsule 40 mg PO QDAY 05/26/22 01/06/23 lamotrigine 200 mg tablet 200 mg PO QDAY 05/26/22 01/06/23 atomoxetine 40 mg capsule 40 mg PO QAM 08/05/22 01/06/23 Allergies Allergy/AdvReac Type Severity Reaction Status Date / Time prochlorperazine Allergy Verified 01/06/23 09:05 [From Compazine] Review of Systems Status of ROS: Reports: 10 or more systems reviewed and unremarkable except as noted in History and below Narrative: Constitutional: No fevers, no weight gain or loss. Eyes: No discharge. No vision changes. HENT: No congestion, no sore throat, no ear pain. Epistaxis. Cardiovascular: No chest pain, no palpitations. Respiratory: No shortness of breath, no wheezes, no cough. Gastrointestinal: No abdominal pain, no vomiting, no diarrhea. Genitourinary: No dysuria, no hematuria. Musculoskeletal: Normal range of motion. Skin: No rashes, no pruritis. Neurological: No dizziness, weakness, sensory change, speech change. Endo/Heme/Allergies: No bruising or bleeding. No polydipsia. Pysch: no suicidality, no anxiety, no insomnia. All other systems reviewed and are negative. [facility] Medical History Fibroid uterus ?D25.9 - Leiomyoma of uterus, unspecified (ICD-10) Hyperlipidemia ?E78.5 - Hyperlipidemia, unspecified (ICD-10) Pelvic mass ?R19.00 - Intra-abdominal and pelvic swelling, mass and lump, unspecified site (ICD-10) Screening mammogram for breast cancer ?Z12.31 - Encounter for screening mammogram for malignant neoplasm of breast (ICD-10) Screening for diabetes mellitus ?Z13.1 - Encounter for screening for diabetes mellitus (ICD-10) Screening for hyperlipidemia ?Z13.220 - Encounter for screening for lipoid disorders (ICD-10) Screening for cervical cancer ?Z12.4 - Encounter for screening for malignant neoplasm of cervix (ICD-10) Family history of colon cancer ?Z80.0 - Family history of malignant neoplasm of digestive organs (ICD-10) Epistaxis ?R04.0 - Epistaxis (ICD-10) Encounter for well woman exam with routine gynecological exam ?Z01.419 - Encounter for gynecological examination (general) (routine) without abnormal findings (ICD-10) delivery delivered ?O82 - Encounter for delivery without indication (ICD-10) No significant past medical history Surgical History History of section ?Z98.891 - History of uterine scar from previous surgery (ICD-10) Family History Sister Asthma Maternal Grandmother Breast cancer, Onset Age: 75 Paternal Grandmother Diabetes Stroke, Onset Age: 80 Father High blood pressure Brother Colon cancer 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 HEENT: Normocephalic, atraumatic. Dark blood in the right anterior nostril with no sign of active bleeding. Neck: Normal range of motion. Nontender. Supple. Heart: Regular. No murmurs. Normal rate. Intact distal pulses. Lungs: Clear to auscultation. No chest discomfort. No wheezes, rhonchi, or rales. Abdomen: Normal bowel sounds. Nontender. No rebound tenderness. Genitalia: Deferred. Back: No midline tenderness. Normal range of motion. Extremities: Normal range of motion. No injury. Skin: Intact. No rash. Warm. No erythema or pallor. Neurologic: No altered sensation. No weakness. Alert and oriented. Psychiatric: No suicidality. No anxiety or depression. No insomnia. Nursing notes and vitals signs are reviewed. Const: Vital Signs, click to edit/add: Vital Signs - 24 hr 01/08/23 07:49 Temperature 97.8 F Pulse Rate [Right Pulse Oximeter] 95 Respiratory Rate 18 Blood Pressure [Ri ght Upper Arm] 161/94 H Pulse Oximetry 99 Oxygen Delivery Me thod Room Air Course Vital Signs Vital signs: Initial Vital Signs Temperature 97.8 F 01/08/23 07:49 Temperature Source Temporal Artery Scan 01/08/23 07:49 Pulse Rate 95 01/08/23 07:49 Respiratory Rate 18 01/08/23 07:49 Blood Pressure 161/94 H 01/08/23 07:49 Blood Pressure Mean 116 H 01/08/23 07:49 Blood Pressure Position Sitting 01/08/23 07:49 Pulse Oximetry 99 01/08/23 07:49 Oxygen Delivery Method Room Air 01/08/23 07:49 Vital Signs Temperature 97.8 F 01/08/23 07:49 Pulse Rate 95 01/08/23 07:49 Respiratory Rate 18 01/08/23 07:49 Blood Pressure 161/94 H 01/08/23 07:49 Pulse Oximetry 99 01/08/23 07:49 Oxygen Delivery Method Room Air 01/08/23 07:49 Temperature 97.8 F 01/08/23 07:49 Pulse Rate 95 01/08/23 07:49 Respiratory Rate 18 01/08/23 07:49 Blood Pressure 161/94 H 01/08/23 07:49 Pulse Oximetry 99 01/08/23 07:49 Oxygen Delivery Method Room Air 01/08/23 07:49 MDM - Epistaxis MDM Narrative Medical decision making narrative: This patient has had recurrent nose bleeds over these past several days. She does have a nasal clamp and this was in place at the time of my initial visit. There was no sign of active bleeding. She was not swallowing blood. There is evidence of injury on the right nasal septum. This area had been cauterized a few days before and is rebleeding now. The patient did received Afrin and a nasal clamp was applied. I did re-examine her and there is no sign of ongoing bleeding. I stated that it is best to be very gentle with the nasal mucosa and allow this wound to heal by the least invasive means. The patient does have Afrin that can be used as needed and directed and has a nasal clamp in will use this as the bleed is an anterior bleed that can be arrested with direct pressure. Discharge Plan Discharge Clinical Impression: Recurrent epistaxis Patient Disposition: Home, Self-Care Condition: Improved Additional Instructions: If rebleeding occurs apply nasal clamp and use Afrin as needed and directed. If bleeding is persistent return to emergency department. Follow-up with ear nose and throat otherwise as needed. Prescriptions: No Action atomoxetine 40 mg capsule 40 mg PO QAM fluoxetine 40 mg capsule 40 mg PO QDAY lamotrigine 200 mg tablet 200 mg PO QDAY Follow Up/Referrals: Marce Hunter MD [Primary Care Provider] - Stand Alone Forms: [employer] Info Instructions
[2023-01-08] MEDS: OXYMETAZOLINE 0.05% NASAL SPRAY 1 SPRAY NOSTRIL-B (08:24)
== END 2023-01-08 09:03 | disposition home or self-care (01) ==
PROVIDERS: Emergency Provider Emergency Medicine Emergency Medical Services; PCP Emergency Medicine
DX: R04.0 Epistaxis (principal)
CPT/HCPCS: 99283; 99284

== ENCOUNTER 2023-01-21 13:28 | Emergency (ER) | payer BC, SELFPAY ==
[2023-01-21 13:32] VITALS: BP 140/84; PULSE 120; RESP 18; TEMP 36.4; O2SAT 98; BMI 31.5
--- NOTE | 2023-01-21 13:51 | CRLHL7_ITS ---
For Patients: As a result of the Century Cures Act, medical imaging exams and procedure reports are released immediately into your electronic medical record. You may view this report before your referring provider. If you have questions, please contact your health care provider. INDICATION: Right ankle pain. TECHNIQUE: Right ankle 3 views. COMPARISON: None. FINDINGS: No acute fracture or dislocation. Ankle mortise is symmetric. Cortical thickening in the visualized mid tibial shaft may be due to prior trauma. Plantar calcaneal spur. Ankle joint effusion. Soft tissues are unremarkable. IMPRESSION: Ankle joint effusion. No fracture identified. Dictated by Anali Luz MD @ 01/21/2023 3:04:46 PM (Electronically Signed)
--- NOTE | 2023-01-21 14:21 | ED_ITS ---
HPI - Extremity Injury (Lower) General Date Seen: 01/21/23 Chief Complaint: Extremity Pain/Injury, Lower Stated Complaint: R ankle injury-was here prev for same ankle Time Seen by Provider: 01/21/23 13:38 Source: patient Mode of arrival: ambulatory Limitations: no limitations History of Present Illness HPI Narrative: Patient is a 52-year-old female presenting to emergency department for right ankle pain. She states today she was standing at work when she twisted and she said she felt something pop in her ankle. Since then she has been having increased pain all around the ankle. She has been able to ambulate admits that has been painful. Of note she notes that she injured the same ankle several months ago and has continued to have issues with it. She was complaining the follow-up with Orthopedics soon. Denies numbness, weakness to the foot. Has full range of motion. There is some pain with movement. Related Data Home Medications Medication Instructions Recorded Confirmed fluoxetine 40 mg capsule 40 mg PO QDAY 05/26/22 01/21/23 lamotrigine 200 mg tablet 200 mg PO QDAY 05/26/22 01/21/23 atomoxetine 40 mg capsule 40 mg PO QAM 08/05/22 01/21/23 Allergies Allergy/AdvReac Type Severity Reaction Status Date / Time prochlorperazine Allergy Verified 01/21/23 13:36 [From Compazine] Review of Systems Narrative: Negative unless stated in HPI PFSH PFSH Medical History Fibroid uterus ?D25.9 - Leiomyoma of uterus, unspecified (ICD-10) Hyperlipidemia ?E78.5 - Hyperlipidemia, unspecified (ICD-10) Pelvic mass ?R19.00 - Intra-abdominal and pelvic swelling, mass and lump, unspecified site (ICD-10) Screening mammogram for breast cancer ?Z12.31 - Encounter for screening mammogram for malignant neoplasm of breast (ICD-10) Screening for diabetes mellitus ?Z13.1 - Encounter for screening for diabetes mellitus (ICD-10) Screening for hyperlipidemia ?Z13.220 - Encounter for screening for lipoid disorders (ICD-10) Screening for cervical cancer ?Z12.4 - Encounter for screening for malignant neoplasm of cervix (ICD-10) Family history of colon cancer ?Z80.0 - Family history of malignant neoplasm of digestive organs (ICD-10) Epistaxis ?R04.0 - Epistaxis (ICD-10) Encounter for well woman exam with routine gynecological exam ?Z01.419 - Encounter for gynecological examination (general) (routine) without abnormal findings (ICD-10) delivery delivered ?O82 - Encounter for delivery without indication (ICD-10) No significant past medical history Surgical History History of section ?Z98.891 - History of uterine scar from previous surgery (ICD-10) Family History Sister Asthma Maternal Grandmother Breast cancer, Onset Age: 75 Paternal Grandmother Diabetes Stroke, Onset Age: 80 Father High blood pressure Brother Colon cancer 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 , 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, [employer], 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, 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 alcohol Smoking Status: Never smoker Do you use any of these nicotine containing products: None Second hand tobacco smoke exposure: No How often do you have a drink containing alcohol: 2-3 times a week How many standard drinks containing alcohol do you have on a typical day: 1 or 2 AUDIT-C Alcohol total score: 3 Non-prescribed substance use: denies use Little interest or pleasure in doing things: not at all Feeling down, depressed, or hopeless: not at all service: No Exam Narrative: Exam Narrative: Const: Well-nourished, Well-developed, in mild distress Eyes: PERRL, no conjunctival injection, and symmetrical lids HENT: Atraumatic external nose and ears. Moist mucous membranes. MSK:Extremities w/o deformity, Normal Active ROM, no swelling noted to the ankle. There is tenderness all around the ankle. No tenderness noted anywhere else. Skin: Warm, Dry. No rashes or lesions. Neuro: Normal Muscle tone, No focal neurological deficits. Psych: Awake, Alert, & Oriented x3. Appropriate mood and affect. Const: Vital Signs, click to edit/add: Vital Signs - 24 hr 01/21/23 13:32 Temperature 97.6 F Pulse Rate [Pulse Oximeter] 120 H Respiratory Rate 18 Blood Pressure [Ri ght Upper Arm] 140/84 H Pulse Oximetry 98 Oxygen Delivery Me thod Room Air Course Vital Signs Vital signs: Initial Vital Signs Temperature 97.6 F 01/21/23 13:32 Temperature Source Temporal Artery Scan 01/21/23 13:32 Pulse Rate 120 H 01/21/23 13:32 Respiratory Rate 18 01/21/23 13:32 Blood Pressure 140/84 H 01/21/23 13:32 Blood Pressure Mean 102 01/21/23 13:32 Blood Pressure Position Sitting 01/21/23 13:32 Pulse Oximetry 98 01/21/23 13:32 Oxygen Delivery Method Room Air 01/21/23 13:32 Vital Signs Temperature 97.6 F 01/21/23 13:32 Pulse Rate 120 H 01/21/23 13:32 Respiratory Rate 18 01/21/23 13:32 Blood Pressure 140/84 H 01/21/23 13:32 Pulse Oximetry 98 01/21/23 13:32 Oxygen Delivery Method Room Air 01/21/23 13:32 Temperature 97.6 F 01/21/23 13:32 Pulse Rate 120 H 01/21/23 13:32 Respiratory Rate 18 01/21/23 13:32 Blood Pressure 140/84 H 01/21/23 13:32 Pulse Oximetry 98 01/21/23 13:32 Oxygen Delivery Method Room Air 01/21/23 13:32 MDM - Extremity Injury (Lower) MDM Narrative Medical decision making narrative: Patient is a 52-year-old female presenting for right ankle pain. Pain has been a issue for for the past couple months since finish your thank up with the she hurt it again today. She is neurovascular intact to the lower extremity. We will do an x-ray to make sure there are no fractures. He returned showing a fusion but no fractures. She is otherwise doing well. Has not required pain medication emergency department. She will be given Wilfrid wrap in information for orthopedic follow-up. She is agreeable to this plan. Imaging Data Right ankle x-ray: Radiologist's impression: IMPRESSION: Ankle joint effusion. No fracture identified. Dictated by Anali Luz MD @ 01/21/2023 3:04:46 PM Discharge Plan Discharge Clinical Impression: Ankle sprain and strain Patient Disposition: Home, Self-Care Condition: Stable Instructions: Ankle Sprain (ED) Additional Instructions: Follow-up with orthopedics. Return for new worsening symptoms. Take Tylenol and ibuprofen for pain. Prescriptions: No Action atomoxetine 40 mg capsule 40 mg PO QAM fluoxetine 40 mg capsule 40 mg PO QDAY lamotrigine 200 mg tablet 200 mg PO QDAY Follow Up/Referrals: Provider,Not a Local [Primary Care Provider] - Stand Alone Forms: [facility] [employer] Info Instructions
--- NOTE | 2023-01-21 15:37 | ED.NURSE ---
MYLES wrap applied to left ankle.
== END 2023-01-21 15:38 | disposition home or self-care (01) ==
PROVIDERS: Emergency Provider Student in an Organized Health Care Education/Training Program
DX: S93.401A Sprain of unspecified ligament of right ankle, initial encounter (principal); X50.1XXA Overexertion from prolonged static or awkward postures, initial encounter
CPT/HCPCS: 73610; 99282; 99283

== ENCOUNTER 2023-02-14 07:48 | Outpatient (RCR) | payer BC, SELFPAY ==
--- NOTE | 2023-02-14 11:48 | PT.OPEX ---
Please review and sign the attached outpatient physical therapy evaluation completed on 02/14/23. Thank you. PT [place] Out[facility] Eval PT [facility] Outpatient Eval Start: 02/08/23 08:55 Freq: Status: Active Protocol: Document 02/14/23 07:23 TLQ (Rec: 02/14/23 09:00 TLQ [id number]) E-signed By Gale Chery DPT Physical Therapy Outpatient Evaluation Insurance Information Recert Due Date 04/15/23 Insurance Name Medicaid,[employer] Medical Diagnosis Sprain of unspecified ligament of right ankle S93.401A Strain of unspecified muscle and tendon at ankle and foot level, right foot S96.911A Treating Diagnosis Pain in right ankle and joints M25.571 Muscle weakness M62.81 Impaired balance R26.81 Referring MD Howard Post MD Subjective Subjective Patient states she sprained her right ankle back in November when her dog pulled her off of her porch. Went to the ER initially, x-rays were taken and her ankle was wrapped. She was placed in an aircast and was on crutches for a while after the injury. Switched to a CAM boot for a while. Presents today wearing hiking boots. 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 Has had ongoing pain on the outside of her right ankle since the initial injury, returned to the ER on 01/21/23 with pain on the inside of her right ankle , new x-rays were taken. Continues to have swelling in her ankles, notices is when she wakes up in the morning. Pain is present when standing but increases after about 30 minutes of standing. X-ray taken at [facility] on 01/21/23 with the following impression : Ankle joint effusion. No fracture identified. PMHx: hyperlipidemia, depression Pain Comments at best: 4/10 at worst: 8/10 location: medial>lateral R ankle ease factors: rest, ice agg. 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 [employer] Preferred Name Pamela Precautions Therapy Limitations/Systems Review Not Limited Objective Range of Motion R ankle ROM: dorsiflexion (at wall) R 6 inches, pain plantarflexion 50 degrees, pain inversion 40 degrees, pain eversion 7 degrees, pain Strength Ankle MMT: dorsiflexion 4+ plantarflexion (SLHR) R 15 SLHR pain, L 13 SLHR inversion 4+ pain eversion 4+ pain Other/Pertinent Objective TTP on R: ATFL, distal tib posterior, distal peroneals/ tendon, 4th metatarsal Gait: symmetrical, pes planus Balance: R 10 seconds lateral ankle pain, L 2 seconds Special tests: anterior drawer(+) for pain talar tilt (+) for pain Figure-8 measurement: R 21.25 inches L 20 inches Functional Test Performed & Score FAAM: ADL subscale score 55/72, 76% Patient rated current level of function 10% Assessment Assessment/Impression Pamela is a 52 year old female who presents to outpatient physical therapy to address right ankle pain of approximately 3 months duration. Initial injury occurred in November 2022 when patient was pulled off of her porch by her dog resulting in lateral right ankle pain, imaging taken at ER was negative for fracture and patient was placed in an aircast. Since then patient has developed medial right ankle pain, most recent x-ray on 01/21/23 was also negative for fracture. Patient presents today ambulating with normal gait pattern while wearing hiking boots. Pain present medially and laterally in right foot/ankle and worsens with weight bearing, patient's occupations require her to spend extended time on her feet. Tender today with palpation of ATFL and distal peroneals and post tib muscle belly/tendons. Mild edema present in R ankle today with figure 8 measurement of ankle circumference, recommended patient trial compression sleeve on R ankle when at work to minimize swelling associated with prolonged weightbearing. Patient demonstrates good ankle AROM today, plantarflexion strength deficits present and observed to have fair eccentric control with resisted dorsiflexion/inversion/ eversion. Patient was educated today on examination findings and expected POC. She was provided with an initial HEP for ankle strengthening. Based on examination findings the patient is appropriate for skilled physical therapy interventions to decrease pain , increase strength, and improve ankle stability. Primary Functional Limitations walking, standing, stairs, balance, muscle weakness Plan of Care Rehabilitation Potential Good Physical Therapy Goals In 4 visits: - Patient will report improvement in level of function to >50% for improved tolerance to ADL's. - Patient will report decrease in pain from 8/10 to <5/10 for improved tolerance to standing at work. In 8 visits: - Score on FAAM ADL subscale will improve to >63 points ( MCID 8 points) to indicate functional improvements of the R foot/ankle. - Patient will report level of function >80% for improved tolerance to work-related tasks. - Patient will complete >20 SLHR bilaterally to demonstrate increased plantarflexion strength needed for gait and stairs. - Patient will tolerated standing/walking throughout the work day with <3/10 pain in her R ankle. - Patient will adhere to HEP to manage symptoms IND at home . Treatment Plan/Direct Interventions Gait Training,Manual Therapy, Neuromuscular Re-ed,Self-Care/ Home Management,Therapeutic Activities,Therapeutic Exercises Frequency/Duration 1x/week for 8 weeks Patient Will Be Discharged From Therapy Completion of LTG(s),Skills Plateau,Independent w/HEP, Independently Progressing Evaluation Billing Untimed Code Treatment Minutes 35 Complexity Low Certification Information Initial Certification Date 02/14/23 Ending Certification Date 05/15/23 Provider Signature Shows Agreement With POC & Medical Necessity Physician Signature & Date Requested Please Sign/Date Here Physician Comment/Change : Physician NPI Number #
== END 2023-05-04 08:48 | disposition home or self-care (01) ==
PROVIDERS: Visit Provider Orthopaedic Surgery
DX: S93.401A Sprain of unspecified ligament of right ankle, initial encounter (principal); S96.911A Strain of unspecified muscle and tendon at ankle and foot level, right foot, initial encounter; M25.571 Pain in right ankle and joints of right foot; M62.81 Muscle weakness (generalized); R26.81 Unsteadiness on feet; Z51.89 Encounter for other specified aftercare
CPT/HCPCS: 97110; 97161

== ENCOUNTER 2024-09-22 13:29 | Emergency (ER) | payer OTHER, SELFPAY ==
[2024-09-22] VITALS (18 sets, daily range): BP systolic 157–183; BP diastolic 97–128; PULSE 96–116; RESP 0–20; TEMP 36.7; O2SAT 90–97; BMI 29.4
--- OUTSIDE RECORDS SUMMARY | 2024-09-22 13:31 | XMS_ITS | Clinical Summary ---
Author Organization [facility] Address [address] [place] [address] Care Team Providers Care Information Technology Program Manager Name Role Phone DorothyLilliana gerber Primary Care Provider [phone] Allergies Active Allergy Reactions Criticality Noted Date Comments Prochlorperazine *Unknown 07/02/2006 comapzine Medications hydrOXYzine HCL 25 mg tabletIndications: Other specified anxiety disorders Take 1 tablet (25 mg) by mouth once daily. May also take 1 tablet (25 mg) 3 times daily if needed for anxiety or sleep. Wait at least 1 hour between doses 270 Tablet 3 5 Active lamoTRIgine 150 mg tabletIndications: Major depressive disorder, recurrent episode with seasonal pattern Take 1 Tablet (150 mg) by mouth once daily. 90 Tablet 3 Active atomoxetine 40 mg capsuleIndications :History of attention deficit hyperactivity disorder (ADHD) Take 1 Capsule (40 mg) by mouth once daily. 30 Capsule 11 5 Active Active Problems Problem Noted Date Diagnosed Date Intramural leiomyoma of uterus 11/11/2023 Alcohol use disorder, severe , in sustained remission since 199209/29/2023 History of attention deficit hyperactivity disor jamie (ADHD) 07/15/2023 Borderline personality disorder in remission Other specified anxiety disorders 05/18/2007 Major depressive disorder, r ecurrent episode with seasonal pattern 07/02/2006 Resolved Problems Problem Noted Date Diagnosed Date Resolved Date Depressive disorder, not elsewhere classified 05/18/19 08 08/16/2023 Unspecified general medical examination 05/18/2007 07/15/2023 Unspecified personality disorder 04/27/2007 08/16/2023 Encounters Date Type Department Care Team Description 07/13/2024 12:30 PM CDT Office Visit [facility] [address] [place] [address] Kain Gee MD Follow Up; Medication Management 07/13/2024 Travel from Last 3 Months Immunizations Immunization Administration Dates Next Due INFLUENZA, IIV3 PF (AGE >= 6 MO) 03/22/2024 Influenza, IIV3 (Age >=3 years) 03/02/20 14,12/25/2012,12/12/2010,05/16/19 08,01/29/2006,02/11/2003 Influenza, IIV4 01/05/2023 Influenza,CCIIV4 PRESERV FREE 03/06/2020 Td (Age >=7 Years) 09/16/1996 Tdap 05/26/2022,12/12/2010 Zoster (Shingrix-RZV, recombinant) 03/22/2024, Family History Medical History Relation Name Comments Good Health Father Cancer-breast Maternal Grandmother Good Health Mother Good Health Son 1 Good Health Son 2 Relation Name Status Comments Father Maternal Grandmother Mother Son 1 Son 2 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 Tobacco Use Types Packs/Day Years Used Date Smoking Tobacco: Never Smokeless Tobacco: Never Tobacco Cessation:Counseling Given: Yes Alcohol Use Standard Drinks/Week Comments Yes 3 (1 standard drink = 0.6 oz pur e alcohol) PHQ-2 Answer Date Recorded PHQ-2 TOTAL SCORE 0 07/13/2024 Social Connections Answer Date Recorded Do you often feel lonely or isolated from those around you? 0 07/15/2023 Alcohol Use Answer Date Recorded How often do you have a drink containing alcohol ? 2 09/29/2023 How many drinks containing a lcohol do you have on a typical day when you are drinking? 1 09/29/2023 How often do you have five or more drinks on one occasion? 0 09/29/2023 Financial Resource Strain Answer Date R ecorded Difficulty of Paying Living Expenses 3 07/15/2023 Difficulty of Paying Living Expenses Not on file 07/15/2023 Food Insecurity Answer Date Recorded Do you worry your food will run out before you are able to buy more? 1 07/15/2023 Transportation Needs Answer Date Record ed Does lack of transportation keep you from medica l appointments? 1 07/15/2023 Does lack of transportation keep you from work, meetings or getting things that you need? 1 07/15/2023 Housing Stability Answer Date Recorded What is your housing situation today? 1 07/15/2023 Utilities Answer Date Recorded Do you have trouble paying f or utilities (for example, heat, electricity, water, phone)? 1 07/15/2023 Comments No Sex and Gender Information Value Date Recorded Sex Assigned at Not on file Legal Sex Female 5:25 AM LOG LOADER Gender Identity Not on file Sexual Orientation Not on file Obstetrics History Para Term AB IAB SAB Ectopic Multiple Livin g Live Births 5 2 1 1 1 1 2 2 Date Outcome GA Total Labor Labor/2nd/3rd Weight Sex Type Anes PTL Shirlene A1 A5 Name Clin IAB Term 002 38w 0d 3.37 kg (7 lb 7 oz) M C-Sec tion Livin g 10 10 fajardo Delivery Location:[facility] 004 36w 0d 2.89 kg (6 lb 6 oz) M C-Sec tion Livin g 7 9 ehres krysten Delivery Location:[facility] Last Filed Vital Signs Vital Sign Reading Time Taken Comments Blood Pressure 145/74 07/13/2024 12:35 PM CDT Pulse 77 07/13/2024 12:33 PM CDT Temperature 37 C (98.6 F) 11/11/2023 2:23 PM CDT Respiratory Rate 16 02/06/2008 4:39 PM LOG LOADER Oxygen Saturation 97% 11/11/2023 2:14 PM CDT Inhaled Oxygen Concentration - - Weight 86.2 kg (190 lb) 07/13/2024 12:33 PM CDT Height 166 cm (5' 5.35) 11/11/2023 2:14 PM CDT Body Mass Index 31.28 11/11/2023 2:14 PM CDT Plan of Treatment Upcoming Encounters Date Type Department Care Team (Late st Contact Info) Description 10/08/2024 9:00 AM CDT Office Visit [facility] [address] [place] [address] Kain Gee MD [address] [place] [id number] Health Maintenance Due Date Last Done Comments HIV for age 15-65 12/09/1987 Hepatitis C screening for ag e 18-79 1990 Hepatitis B series for 19+ ( 1 of 3 - 19+ 3-dose series) 12/09/1991 Pneumococcal series for age 50+ (1 of 2 - PCV) 12/09/1991 Lipids for age 45-75 2017 COVID-19 vaccine series ( season) 2023 04/01/2021, 06/26/2020, 05/30/2020 BMI (ht and wt on same day) for age 18+ 11/10/2024 11/11/2023, 05/11/2018, 03/06/2018, Additional history exists Influenza Vaccine (#1) 2024 , 01/05/2023, 03/06/2020, Additional history exists Mammogram for age 45-75 12/01/2024 12/02/2023, 08/13 Pap test for age 21-65 05/26/2025 , 05/26/2022, 07/31/2015, Additional history exists Depression screening for age 12+ 07/13/2025 07/13/2024, 03/05/2024, 01/16/2024, Additional history exists Tetanus booster 05/26/2032 05/26/2022, 11/20, 09/16/1996 Colonoscopy through age 75 06/25/2032 06/25/2022 Zoster (shingles) series for age 50+ Completed 03/22/2024, 11/11/2023 Procedures Procedure Name Priority Date/Time Associated Diagnosis Comments XR MAMMO ALIYA BILAT SCREEN Routine 12/02/2023 8:58 AM CDT Visit for screening mammogram SCAN-COLONOSCOPY 06/25/2022 12:0 0 AM CDT HPV HIGH RISK Routine 05/26/2022 9:30 AM LOG LOADER from Last 3 Months or Most Recently Relevant to Health Maintenance Results * XR MAMMO ALIYA BILAT SCREEN (12/02/2023 8:58 AM CDT) Anatomical Region Laterality Modality BREASTS, Breast Left, Breast Right Bilateral Mammography Impressions 12/05/2023 1:56 PM CDT There is no radiographic evidence for malignancy. Recommend annual mammograms. MAMMOGRAM ASSESSMENT: ACR 1 Negative PATIENTS: You will also receive a letter with your examination results in an easy to read format. If you have questions about your results, please contact your referring provider. Narrative 12/05/2023 1:56 PM CDT For Patients: As a result of the Cures Act, medical imaging exams and procedure reports are released immediately into your electronic medical record. You may view this report before your referring provider. If you have questions, please contact your health care provider. XR MAMMO ALIYA BILAT SCREEN [[id number]] CLINICAL HISTORY: This is an asymptomatic 52 y.o. patient. INDICATION FOR EXAM: Mammogram Screening. TECHNIQUE: CC & MLO views were obtained. This study was evaluated with the assistance of Computer-Aided Detection. Breast Tomosynthesis was used in interpretation. COMPARISON FILM: Yes 08/13/22 [facility] 08/13/22 Outside Facility FINDINGS: There are scattered areas of fibroglandular density. There are no dominant masses, suspicious micro calcifications or areas of architectural distortion. us Lilliana De La Cruz DO MAMMO Final Resu lt * SCAN-COLONOSCOPY (06/25/2022 12:00 AM CDT) us Scanner OTHER Final Result * HPV HIGH RISK (05/26/2022 9:30 AM LOG LOADER) TYPE 16 Negative Negative 05/31/2022 10:59 AM CDT [facility] TYPE 18 Negative Negative 05/31/2022 10:59 AM CDT [facility] OTHER HIGH RISK TYPES Negative Negative 05/31/2022 10:59 AM CDT [facility] Other (Cervical) 05/26/2022 9:30 AM LOG LOADER 05/27/2022 12:29 PM LOG LOADER Narrative [facility] 05/31/2022 10:59 AM CDT HPV types 16, 18, 31, 33, 35, 39, 45, 51, 52, 56, 58, 59, 66 and 68 DNA were undetectable or below the pre-set threshold. Methodology: Juju Gerardo 4800 HPV Test us Marce Hunter MD MICROBIOLOGY Final Resu lt [facility] [address] [place] [address], from Last 3 Months or Most Recently Relevant to Health Maintenance Insurance [facility] [employer] Advance Directives * Full Code (Latest Code Status on File) Date Activated Date Inactivated Comments 05/17/2007 1:11 AM 05/19/2007 1:42 PM Care Teams Information Technology Program Manager Relationship Specialty Start Date End Date Lilliana De La [place] [address] PCP - General Family Practice 11/11/23
--- OUTSIDE RECORDS SUMMARY | 2024-09-22 13:31 | XMS_ITS | Clinical Summary ---
Author Organization [facility] Address [address] [place] [id number] Care Team Providers Care Shell Mold Bonder Name Role Phone [facility]- Primary Care Provider Allergies Active Allergy Reactions Criticality Noted Date Comments Prochlorperazine 08/30/2022 Active Problems Problem Noted Date Diagnosed Date Borderline personality disorder 06/02/2007 Anxiety state 05/18/2007 Depressive disorder 05/18/2007 Personality disorder 04/27/2007 Major depressive disorder, recurrent episode 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 Tobacco Use Types Packs/Day Years Used Date Smoking Tobacco: Never Assessed Adolescent Education Answer Date Record ed Getting School Help Needed Not on file 01/04 Comments No Sex and Gender Information Value Date Recorded Sex Assigned at Not on file Legal Sex Female 4:44 AM SOCIAL WORK FACULTY MEMBER Gender Identity Not on file Sexual Orientation Not on file Last Filed Vital Signs Vital Sign Reading Time Taken Comments Blood Pressure 163/99 08/30/2022 11:26 PM CDT Pulse 86 08/30/2022 11:26 PM CDT Temperature 36.5 C (97.7 F) 08/30/2022 6:11 PM CDT Respiratory Rate 18 08/30/2022 6:11 PM CDT Oxygen Saturation 99% 08/30/2022 11:26 PM CDT Inhaled Oxygen Concentration - - Weight 87.1 kg (192 lb) 03/19/2021 2:42 PM SOCIAL WORK FACULTY MEMBER Height - - Body Mass Index - - Plan of Treatment Health Maintenance Due Date Last Done Comments ADVANCE CARE PLANNING 1972 ANNUAL REVIEW OF HM ORDERS 1972 CT COLONOGRAPHY 1972 DIABETES SCREENING 1972 FIT 1972 FLEX SIG 1972 MAMMO SCREENING 1972 sDNA (Cologuard) 1972 YEARLY PREVENTIVE VISIT 12/09/1975 COLONOSCOPY 1982 COLORECTAL CANCER SCREENING 1982 HIV SCREENING 12/09/1987 HEPATITIS C SCREENING 1990 HEPATITIS B VACCINE (1 of 3 - 19+ 3-dose series) 12/09/1991 LIPID 2012 PNEUMOCOCCAL VACCINE 50+ YEARS (1 of 1 - PCV) 2022 ZOSTER VACCINE (1 of 2) 2022 COVID-19 VACCINE (4 - season) 2023 04/01/2021, 06/26/2020, 05/30/2020 INFLUENZA VACCINE (Season Ended) 2024 05/26/2022, 03/06/2020, 03/02/2014, Additional history exists PAP 05/26/2025 05/26/2022, 05/26/2022 DTAP/TDAP/TD VACCINE (4 - Td or Tdap) 05/26/2032 05/26/2022, 12/12/2010, 09/16/1996 HPV VACCINE Aged Out No longer eligi ble based on patient's age to complete this topic MENINGITIS VACCINE Aged Out No longer eligible based on patient's age to complete this topic Care Teams Shell Mold Bonder Relationship Specialty Start Date End Date [facility]- [address] [place] [address] PCP - General 08/30/22
--- NOTE | 2024-09-22 14:12 | ED.GENADULT ---
HPI - General Adult General Chief complaint: Abdominal Pain Stated complaint: NAUSEA, DEHYDRATION Time Seen by Provider: 09/22/24 13:55 Source: patient Mode of arrival: ambulatory Limitations: no limitations History of Present Illness HPI narrative: 53-year-old female presenting today with nausea and vomiting. States that she has felt nauseated for about 2 days and has been vomiting once per day yesterday and today. she has a burning sensation in the epigastric region and across the mid back. Nothing seems to make it better or worse. She has not really been eating or drinking anything throughout the last 2 days. She denies any fevers. She has not had a bowel movement in 2 days. She denies any increased urinary urgency or frequency. No dysuria. No blood in her vomit or stools. She denies any recent traveling or sick contacts. She denies any new medications. Patient takes Lamictal for mood stabilization, Strattera for ADHD and hydroxyzine for anxiety. She denies chest pain or shortness of breath. No recent surgeries. Patient thinks that she is dehydrated and overheated, she states that she has been inside the last couple of days but she has no air conditioning. Related Data Home Medications ?Medication ?Instructions ?Recorded ?Confirmed fluoxetine 40 mg capsule 40 mg PO QDAY 05/26/22 01/24/23 lamotrigine 200 mg tablet 200 mg PO QDAY 05/26/22 01/24/23 atomoxetine 40 mg capsule 40 mg PO QAM 08/05/22 01/24/23 atomoxetine 25 mg capsule mg PO 01/24/23 01/24/23 atomoxetine 80 mg capsule 80 mg PO QAM 01/24/23 01/24/23 hydroxyzine HCl 25 mg tablet 25 mg PO DAILY 01/24/23 Allergies Allergy/AdvReac Type Severity Reaction Status Date / Time prochlorperazine (From Allergy Verified 05/31/23 16:45 Compazine) Review of Systems Status of ROS: Reports: 10 or more systems reviewed and unremarkable except as noted in History and below [facility] Medical History Fibroid uterus ?D25.9 - Leiomyoma of uterus, unspecified (ICD-10) Hyperlipidemia ?E78.5 - Hyperlipidemia, unspecified (ICD-10) Pelvic mass ?R19.00 - Intra-abdominal and pelvic swelling, mass and lump, unspecified site (ICD-10) Screening mammogram for breast cancer ?Z12.31 - Encounter for screening mammogram for malignant neoplasm of breast (ICD-10) Screening for diabetes mellitus ?Z13.1 - Encounter for screening for diabetes mellitus (ICD-10) Screening for hyperlipidemia ?Z13.220 - Encounter for screening for lipoid disorders (ICD-10) Screening for cervical cancer ?Z12.4 - Encounter for screening for malignant neoplasm of cervix (ICD-10) Family history of colon cancer ?Z80.0 - Family history of malignant neoplasm of digestive organs (ICD-10) Epistaxis ?R04.0 - Epistaxis (ICD-10) Encounter for well woman exam with routine gynecological exam ?Z01.419 - Encounter for gynecological examination (general) (routine) without abnormal findings (ICD-10) delivery delivered ?O82 - Encounter for delivery without indication (ICD-10) No significant past medical history Surgical History History of section ?Z98.891 - History of uterine scar from previous surgery (ICD-10) Family History Sister Asthma Maternal Grandmother Breast cancer, Onset Age: 75 Paternal Grandmother Diabetes Stroke, Onset Age: 80 Father High blood pressure Brother Colon cancer 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 , 2 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 Alert and oriented. Answers questions appropriately. Mood and affect are appropriate. Thoughts are goal oriented and rational. No tangential or magical thinking noted. Patient speaks in full sentences without needing to catch her breath. Patient keeps her eyes closed during our entire conversation until I ask her to open them. HEENT: Normocephalic atraumatic. Pupils are equally round reactive to light. Extraocular muscles are intact. Conjunctivae are moist without any icterus noted. Moist mucous membranes. Posterior pharynx is normal. Neck is soft without any lymphadenopathy or thyromegaly. No masses are appreciated. Cardiovascular: Heart is regular rate and rhythm S1 and S2 are present without any murmurs. Lungs: Clear to auscultation bilaterally no wheezes rhonchi or rales are appreciated. Patient takes deep breaths without any discomfort. Abdomen: Soft and nontender nondistended with normal bowel sounds. No guarding or rebound. No masses or organomegaly appreciated. Extremities: Bilateral lower extremities are without edema. Normal DP and PT pulses. Skin: Well perfused without any obvious rashes. Const: Vital Signs, click to edit/add: Vital Signs - 24 hr 09/22/24 13:45 09/22/24 14:33 09/22/24 14:45 Temperature 98.0 F Pulse Rate 100 Pulse Rate [Pulse Oximeter] 108 H Respiratory Rate 20 Blood Pressure 182/125 H Blood Pressure [Ri ght Upper Arm] 167/99 H Pulse Oximetry 95 92 Oxygen Delivery Me thod Room Air 09/22/24 15:00 09/22/24 15:02 09/22/24 15:03 Temperature Pulse Rate 101 H 105 H 109 H Pulse Rate [Pulse Oximeter] Respiratory Rate Blood Pressure 183/128 H Blood Pressure [Ri ght Upper Arm] Pulse Oximetry 90 93 93 Oxygen Delivery Me thod 09/22/24 15:15 09/22/24 15:45 09/22/24 15:48 Temperature Pulse Rate 100 Pulse Rate [Pulse Oximeter] Respiratory Rate 13 15 Blood Pressure 157/97 H Blood Pressure [Ri ght Upper Arm] Pulse Oximetry 92 Oxygen Delivery Me thod 09/22/24 15:50 09/22/24 15:52 09/22/24 15:53 Temperature Pulse Rate 105 H 108 H 116 H Pulse Rate [Pulse Oximeter] Respiratory Rate 19 19 18 Blood Pressure 167/111 H 166/104 H Blood Pressure [Ri ght Upper Arm] Pulse Oximetry 93 92 92 Oxygen Delivery Me thod Course Course ED Course: Differential diagnoses includes gastroenteritis, gastritis, dehydration. But really the differential is quite broad and could include anything from pyelonephritis to acute coronary syndrome. EKG, read by me, shows sinus rhythm with premature atrial complex. Pulse is 99. Normal [place], QRS and QTC intervals. IV was established and patient given a L of normal saline and IV Zofran. CBC returned showing a slightly elevated white blood cell count 12.6, hemoglobin elevated at 16.8 and RBC elevated at 5.5. Chemistries unremarkable. LFTs unremarkable. Normal lactate. CRP slightly up at 1.6. Troponin however markedly elevated at 0.68. At this time we did go ahead and give the patient aspirin and page cardiology. She was also given sublingual nitro and heparin was started. Discussed patient with Dr. Franco, cardiology at [facility], who will accept patient for transfer. Vital Signs Vital signs: Initial Vital Signs Temperature 98.0 F 09/22/24 13:45 Temperature Source Temporal Artery Scan 09/22/24 13:45 Pulse Rate 108 H 09/22/24 13:45 Respiratory Rate 20 09/22/24 13:45 Blood Pressure 167/99 H 09/22/24 13:45 Blood Pressure Mean 121 H 09/22/24 13:45 Blood Pressure Position Sitting 09/22/24 13:45 Pulse Oximetry 95 09/22/24 13:45 Oxygen Delivery Method Room Air 09/22/24 13:45 Vital Signs Temperature 98.0 F 09/22/24 13:45 Pulse Rate 108 H 09/22/24 13:45 Respiratory Rate 20 09/22/24 13:45 Blood Pressure 167/99 H 09/22/24 13:45 Pulse Oximetry 95 09/22/24 13:45 Oxygen Delivery Method Room Air 09/22/24 13:45 Temperature 98.0 F 09/22/24 13:45 Pulse Rate 116 H 09/22/24 15:53 Respiratory Rate 18 09/22/24 15:53 Blood Pressure 166/104 H 09/22/24 15:52 Pulse Oximetry 92 09/22/24 15:53 Oxygen Delivery Method Room Air 09/22/24 13:45 Medications Administered Medications: Generic Name Dose Route Start Last Admin Trade Name Freq PRN Reason Stop Dose Admin Heparin Sodium/Dextrose 25,000 unit in 500 mls @ 0 mls/hr 09/22/24 15:30 09/22/24 15:39 Heparin IV 1,000 unit/hr .Q0M MATEO 20 mls/hr Protocol Administration Per Protocol Discontinued Medications Generic Name Dose Route Start Last Admin Trade Name Arian PRN Reason Stop Dose Admin Aspirin 324 mg 09/22/24 15:10 09/22/24 15:15 Aspirin 81 Mg Tab.Chew PO 09/22/24 15:11 324 mg ONCE ONE Administration Heparin Sodium (Porcine) 4,000 unit 09/22/24 15:24 09/22/24 15:41 Heparin 5,000 Unit/0.5 Ml Inj IVP 09/22/24 15:25 4,000 unit ONCE ONE Administration Sodium Chloride 1,000 mls @ 1,000 mls/hr 09/22/24 14:15 09/22/24 15:24 0.9 % Sodium Chloride 1000 Ml IV 09/22/24 15:14 Infused .Q1H MATEO Infusion Morphine Sulfate 2 mg 09/22/24 16:10 09/22/24 16:17 Morphine 2 Mg/Ml Inj IVP 09/22/24 16:11 2 mg ONCE ONE Administration Nitroglycerin 0.4 mg 09/22/24 15:24 09/22/24 15:47 Nitroglycerin 0.4 Mg Tab.Subl SUBLINGUAL 09/22/24 15:25 0.4 mg ONCE ONE Administration Ondansetron HCl 4 mg 09/22/24 14:09 09/22/24 14:22 Ondansetron 2 Mg/Ml Inj IVP 09/22/24 14:10 4 mg ONCE ONE Administration Sucralfate 1 gm 09/22/24 14:09 09/22/24 14:23 Sucralfate 1 Gm Tablet PO 09/22/24 14:10 1 gm ONCE ONE Administration Medical Decision Making [facility] Narrative Medical decision making narrative: 53-year-old female with a non ST elevation TX until proven otherwise. Patient will be transferred to [facility] for further management. Lab Data Lab results reviewed: Yes I reviewed the patient's lab results Labs: Lab Results 09/22/24 09/22/24 Range/Units 14:20 14:21 WBC 12.65 H (4.50-11.00) K/uL RBC 5.55 H (4.00-5.20) m/uL Hgb 16.8 H (12.0-16.0) gm/dL Hct 48.3 (33.0-51.0) % MCV 87 (80-100) fL MCH 30 (26-34) pg MCHC 35 (32-36) gm/dL RDW Coeff of Tk 12.0 (11.5-15.5) % Plt Count 270 (140-440) K/uL Neut % (Auto) 87.5 H (42.0-72.0) % Lymph % (Auto) 5.9 L (20-44) % Converse % (Auto) 5.0 (0.0-11.0) % Eos % (Auto) 0.0 (0.0-7.0) % Baso % (Auto) 0.1 (0.0-3.0) % Neut # (Auto) 11.10 H (1.7-7.0) K/uL Lymph # (Auto) 0.70 L (0.90-2.90) K/uL Converse # (Auto) 0.60 (0.00-0.90) K/UL Eos # (Auto) 0.00 (0.00-0.50) K/uL Baso # (Auto) 0.00 (0.00-0.30) K/uL Abs Immat Gran (auto) 0.20 (0.00-0.30) K/uL Imm/Tot Granulo (auto) 1.5 % INR 0.90 L (0.91-1.10) APTT 26 (23-33) Seconds D-Dimer Quant (PE/DVT) 0.34 (0.00-0.50) ug/ml Sodium 135 (135-149) mmol/L Potassium 4.2 (3.6-5.1) mmol/L Chloride 99 (96-114) mmol/L Carbon Dioxide 23 (20-32) mmol/L Anion Gap 13 (7-15) mEq/L BUN 15 (7-30) mg/dL Creatinine 0.5 (0.5-1.5) mg/dL Estimated Creat Clear 124.61 Estimated GFR 113 ml/min Glucose 174 H (60-115) mg/dL Lactate 1.5 (0.5-1.9) mmol/L Calcium 9.9 (8.4-10.6) mg/dL Total Bilirubin 1.1 (0.1-1.5) mg/dL Direct Bilirubin 0.2 (0.0-0.5) mg/dL AST 37 H (12-35) U/L ALT 18 (4-35) U/L Alkaline Phosphatase 72 (40-150) U/L Troponin I 0.68 H* (0.01-0.04) ng/mL C-Reactive Protein 1.6 H (0.5-1.0) mg/dL Total Protein 8.3 (6.0-8.3) g/dL Albumin 4.9 (3.3-5.0) g/dL Lipase 86 (23-300) U/L ECG Data Attestation: I personally reviewed and interpreted this ECG as follows: Critical Care Time Critical Care Time Total Critical Care Time in Minutes: 60 Discharge Plan Discharge Clinical Impression: Non-ST elevated myocardial infarction Patient Disposition: [place] [facility] Condition: Stable Prescriptions: No Action atomoxetine 40 mg capsule 40 mg PO QAM atomoxetine 80 mg capsule 80 mg PO QAM hydroxyzine HCl 25 mg tablet 25 mg PO DAILY atomoxetine 25 mg capsule PO fluoxetine 40 mg capsule 40 mg PO QDAY lamotrigine 200 mg tablet 200 mg PO QDAY Stand Alone Forms: [facility] Info Instructions
[2024-09-22] MEDS: ONDANSETRON 2 MG/ML inj 4 MG IVP (14:22)
[2024-09-22] MEDS: SUCRALFATE 1 GM TABLET PO (14:23)
[2024-09-22 14:30] LABS: Lactate* 1.5 mmol/L (0.5-1.9)
[2024-09-22 14:36] LABS: Hematocrit 48.3 % (33.0-51.0); Hemoglobin* 16.8 gm/dL (12.0-16.0); Immature Granulocytes Pct Auto 1.5 %; Mean Corpuscular HGB Conc 35 gm/dL (32-36); Mean Corpuscular Hemoglobin 30 pg (26-34); Mean Corpuscular Volume 87 fL (80-100); RDW Coefficient of Variation % 12.0 % (11.5-15.5); Red Blood Count 5.55 m/uL (4.00-5.20); White Blood Count* 12.65 K/uL (4.50-11.00)
[2024-09-22 14:39] LABS: Immature Granulocytes Abs Auto 0.20 K/uL (0.00-0.30); Lymphocytes Absolute Auto 0.70 K/uL (0.90-2.90); Slide Review Reflex No
[2024-09-22 14:46] LABS: Albumin* 4.9 g/dL (3.3-5.0); Chloride* 99 mmol/L (96-114); Sodium* 135 mmol/L (135-149)
[2024-09-22 14:47] LABS: Potassium* 4.2 mmol/L (3.6-5.1)
[2024-09-22 14:49] LABS: Alanine Aminotransferase* 18 U/L (4-35); Alkaline Phosphatase* 72 U/L (40-150); Anion Gap 13 mEq/L (7-15); Aspartate Amino Transferase* 37 U/L (12-35); Bilirubin Direct* 0.2 mg/dL (0.0-0.5); Bilirubin Total* 1.1 mg/dL (0.1-1.5); Blood Urea Nitrogen* 15 mg/dL (7-30); Carbon Dioxide* 23 mmol/L (20-32); Creatinine* 0.5 mg/dL (0.5-1.5); Est. Creatinine Clearance* 124.61; Estimated Glomerular Filt Rate 113 ml/min
[2024-09-22 14:50] LABS: Calcium* 9.9 mg/dL (8.4-10.6); Glucose* 174 mg/dL (60-115); Total Protein* 8.3 g/dL (6.0-8.3)
[2024-09-22] MEDS: ASPIRIN 81 MG TAB.CHEW 324 MG PO (15:15)
--- NOTE | 2024-09-22 15:25 | CRLHL7_ITS ---
For Patients: As a result of the Century Cures Act, medical imaging exams and procedure reports are released immediately into your electronic medical record. You may view this report before your referring provider. If you have questions, please contact your health care provider. INDICATION: Short of breath. TECHNIQUE: Chest 1 view. COMPARISON: None FINDINGS: Cardiovascular and mediastinum: Heart size and vasculature are normal in caliber and appearance. Mediastinum is within normal limits. Lungs and pleural space: Lungs are clear. No sign of infiltrate or mass. No sign of pleural effusion. No pneumothorax. Bones and soft tissues: No significant findings. IMPRESSION: Unremarkable chest. Dictated by Stephen Crump MD @ 09/22/2024 4:27:37 PM (Electronically Signed)
[2024-09-22 15:38] LABS: INR 0.90 (0.91-1.10); Prothrombin Time 12.9 Seconds
[2024-09-22] MEDS: HEPARIN 25,000 UNIT/500 ML BAG 20 UNIT IV (15:39)
[2024-09-22 15:41] LABS: D Dimer Quantitative* 0.34 ug/ml (0.00-0.50)
[2024-09-22] MEDS: HEPARIN 5,000 UNIT/0.5 ML INJ 4000 UNIT IVP (15:41)
[2024-09-22] MEDS: NITROGLYCERIN 0.4 MG TAB.SUBL SUBLINGUAL (15:47)
== END 2024-09-22 17:05 | disposition short-term general hospital (02) ==
PROVIDERS: Emergency Provider Family Medicine
DX: I21.4 Non-ST elevation (NSTEMI) myocardial infarction (principal)
CPT/HCPCS: 36415; 71045; 80048; 80076; 81001; 83605; 83690; 84484; 85025; 85379; 85610; 85730; 86140; 87086; 93005; 94761; 96374; 96375; 99285; 99291; A9270; J1644; J2270; J2405; J7030

== ENCOUNTER 2024-09-22 16:45 | Outpatient (CLI) | payer OTHER, SELFPAY | END 2024-09-22 16:46 | disposition home or self-care (01) | LOC: AMB 09-24 15:18 | PROVIDERS: Visit Provider Emergency Medicine Emergency Medical Services | DX: I21.4 Non-ST elevation (NSTEMI) myocardial infarction (principal) | CPT/HCPCS: A0425; A0434 ==

== ENCOUNTER 2025-02-08 03:19 | Emergency (ER) | payer OTHER, SELFPAY ==
--- OUTSIDE RECORDS SUMMARY | 2025-02-08 03:21 | XMS_ITS | Clinical Summary ---
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 MERCHANDISE PLANNER Height - - Body Mass Index - [...] of 2) 2022 COVID-19 VACCINE (4 - 2024- season) 2024 04/01/2021, 06/26/2020, 05/30/2020 INFLUENZA VACCINE (#1) 2024 , 03/06/2020, 03/02/2014, Additional history exists PAP 05/26/2025 05/26/2022, 05/26/2022 DTAP/TDAP/TD VACCINE (4 - Td or Tdap) 05/26/2032 05/26/2022, 12/12/2010, 09/16/1996 HPV VACCINE (No Doses Required) Completed MENINGITIS VACCINE Aged Out No longer eligible based on patient's age to complete this topic Care Teams Market Superintendent Relationship Specialty Start Date End Date [facility]- [address] [place] [address] PCP - General 08/30/22
--- OUTSIDE RECORDS SUMMARY | 2025-02-08 03:21 | XMS_ITS | Clinical Summary ---
Author Organization [facility] Address [address] [place] [address] Care Team Providers Care President And Chief Commercial Officer Name Role Phone Lilliana De La Cruz Primary Care Provider [phone] Allergies Active Allergy Reactions Criticality Noted Date Comments Prochlorperazine *Unknown 07/02/2006 comapzine Medications metoprolol succinate 100 mg Sustained-Release tabletIndications:S tress-induced cardiomyopathy Take 1 Tablet (100 mg) by mouth once daily. 90 Tablet 3 09/24/2024 12:17 PM CDT 5 Active FLUoxetine (PROZAC) 40 mg capsuleIndications: Major depressive disorder, recurrent episode with seasonal pattern,Other specified anxiety disorders,Borderlin e personality disorder in remission (HC) Take 1 Capsule (40 mg) by mouth once daily. 90 Capsule 3 5 Active Atomoxetine (STRATTERA) 80 mg capsuleIndications: History of attention deficit hyperactivity disorder (ADHD) Take 1 Capsule (80 mg) by mouth once daily. 90 Capsule 3 5 Active hydrOXYzine HCL (ATARAX) 25 mg tabletIndications:O ther specified anxiety disorders Take 1 tablet (25 mg) by mouth once daily. May also take 1 tablet (25 mg) 3 times daily if needed for anxiety or sleep. Wait at least 1 hour between doses 270 Tablet 3 5 Active lamoTRIgine 150 mg tabletIndications:M ajor depressive disorder, recurrent episode with seasonal pattern Take 1 Tablet (150 mg) by mouth once daily. 90 Tablet 3 Active Active Problems Problem Noted Date Diagnosed Date Stress-induced cardiomyopathy 09/26/2024 Abdominal pain 09/22/2024 Low back pain 09/22/2024 Hypertension 09/22/2024 Tachycardia 09/22/2024 Intramural leiomyoma of uterus 11/11/2023 Alcohol use disorder, severe , in sustained remission since 199209/29/2023 History of attention deficit hyperactivity disor jamie (ADHD) 07/15/2023 Borderline personality disorder in remission Other specified anxiety disorders 05/18/2007 Major depressive disorder, r ecurrent episode with seasonal pattern 07/02/2006 Resolved Problems Problem Noted Date Diagnosed Date Resolved Date NSTEMI (non-ST elevated myoc ardial infarction) 09/22/2024 09/26/2024 Depressive disorder, not elsewhere classified 05/18/19 08 08/16/2023 Unspecified general medical examination 05/18/2007 07/15/2023 Unspecified personality disorder 04/27/2007 08/16/2023 Encounters Date Type Department Care Team Description 12/31/2024 8:30 AM CDT Office Visit [facility] [address] [place] [address] Kain Gee MD Follow Up; Medication Management (very well) 12/31/2024 Travel 12/26/2024 10:00 AM CDT Ancillary Procedure [facility] [address] [place] [address] 12/26/2024 Travel 11/26/2024 9:30 AM CDT Office Visit [facility] [address] [place] [address] Kain Gee MD Follow Up; Medication Management (in the hospital for stress cardiomyopathy in September) 11/26/2024 Travel from Last 3 Months Immunizations Immunization [...] Answer Date Recorded PHQ-2 TOTAL SCORE 0 12/31/2024 Social Connections Answer Date Recorded Do you often feel lonely or isolated from those around you? 0 09/26/2024 Alcohol Use Answer Date Recorded How often do you have a drink containing alcohol ? 2 09/29/2023 How many drinks containing a lcohol do you have on a typical day when you are drinking? 1 09/29/2023 How often do you have five or more drinks on one occasion? 0 09/29/2023 Financial Resource Strain Answer Date R ecorded Difficulty of Paying Living Expenses 3 09/26/2024 Difficulty of Paying Living Expenses Not on file 09/26/2024 Food Insecurity Answer Date Recorded Do you worry your food will run out before you are able to buy more? 1 09/26/2024 Transportation Needs Answer Date Record ed Does lack of transportation keep you from medica l appointments? 1 09/26/2024 Does lack of transportation keep you from work, meetings or getting things that you need? 1 09/26/2024 Housing Stability Answer Date Recorded What is your housing situation today? 1 09/26/2024 Utilities Answer Date Recorded Do you have trouble paying f or utilities (for example, heat, electricity, water, phone)? 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 Gender Identity Not on file Sexual Orientation [...] tion Livin g 10 10 fajardo Delivery Location:[facility] 004 36w 0d 2.89 kg (6 lb 6 oz) M C-Sec tion Livin g 7 9 ehresm krysten Delivery Location:[facility] Last Filed Vital Signs Vital Sign Reading Time Taken Comments Blood Pressure 124/73 12/31/2024 8:27 AM CDT Pulse 101 12/31/2024 8:27 AM CDT Temperature 36.4 C (97.5 F) 09/24/2024 8:18 AM CDT Respiratory Rate 16 09/24/2024 8:18 AM CDT Oxygen Saturation 98% 09/26/2024 12:49 PM CDT Inhaled Oxygen Concentration - - Weight 87.5 kg (193 lb) 12/31/2024 8:27 AM CDT Height 166.9 cm (5' 5.71) 09/26/2024 12:49 PM C DT Body Mass Index 31.43 09/26/2024 12:49 PM CDT Plan of Treatment Upcoming Encounters Date Type Department Care Team (Late st Contact Info) Description 04/02/2025 10:00 AM BILLIARD TABLE MECHANIC Office Visit [facility] [address] [place] [address] Kain Gee MD [address] [place] [address] Health Maintenance Due Date Last Done Comments HIV for age 15-65 12/09/1987 Hepatitis C screening for ag e 18-79 1990 Hepatitis B series for 19+ ( 1 of 3 - 19+ 3-dose series) 12/09/1991 Pneumococcal series for age 50+ (1 of 2 - PCV) 12/09/1991 RSV vaccine for adults or (1 - Risk 50-74 years 1-dose series) 2022 Influenza Vaccine (#1) 2024 5, 01/05/2023, 03/06/2020, Additional history exists Mammogram for age 45-75 12/01/2024 12/02/2023, 08/13 Pap test for age 21-65 05/26/2025 , 05/26/2022, 07/31/2015, Additional history exists BMI (ht and wt on same day) for age 18+ 09/26/2025 09/26/2024, 11/11/2023, 05/11/2018, Additional history exists Depression screening for age 12+ 12/31/2025 12/31/2024, 11/26/2024, 07/13/2024, Additional history exists Lipids for age 45-75 09/23/2029 09/23/2024 Tetanus booster 05/26/2032 05/26/2022, 11/20, 09/16/1996 Colonoscopy through age 75 06/25/2032 06/25/2022 Zoster (shingles) series for age 50+ Completed 03/22/2024, 11/11/2023 Procedures Procedure Name Priority Date/Time Associated Diagnosis Comments ECHO TTE LIMITED WO CONTRAST W COLOR W LTD DOPPLER Routine 12/26/2024 10:39 AM CDT Stress-induced cardiomyopathy LIPID PANEL Early AM 09/23/2024 4:17 AM CDT XR MAMMO ALIYA BILAT SCREEN Routine 12/02/2023 8:58 AM CDT Visit for screening mammogram SCAN-COLONOSCOPY 06/25/2022 12:0 0 AM CDT HPV HIGH RISK Routine 05/26/2022 9:30 AM BILLIARD TABLE MECHANIC from Last 3 Months or Most Recently Relevant to Health Maintenance Results * ECHO TTE LIMITED WO CONTRAST W COLOR W LTD DOPPLER (12/26/2024 10:39 AM CDT) AORTIC VALVE MEAN PG 4 mmHg EJECTION FRACTION 69 % PEAK TR VELOCITY 2.3 m/s LVEDD 3.8 cm Anatomical Region Laterality Modality Ultrasound 12/26/2024 10:2 3 AM CDT Narrative 12/26/2024 11:16 AM CDT ECHOCARDIOGRAM AMPARO JEAN : 1970 54 years Study Date: 12/26/2024 10:23:34 AM Gender: F BP: 133/77 mmHg Height: 165.00 cm BSA: 1.89 m Weight: 82.00 kg Tech: ANANYA Referring MD: DELROY MARY Site: [facility] Reading Location: Mobile-OP Patient Location: Outpatient. Procedure: Limited 2D , Color Doppler and Limited Spectral Doppler. Indication for study: Stress-induced cardiomyopathy Cardiac Rhythm: Regular.Study quality: Fair. Final Impressions: Limited Echocardiogram performed 1. Normal left ventricular size, normal wall thickness, normal global systolic function, calculated EF of 69 %. 2. Right ventricular cavity size is normal, global systolic RV function is normal. Comparison Compared to prior exam of 09/23/2024: There is now mild tricuspid regurgitation. Chamber Sizes and Function Normal left ventricular size, normal wall thickness, normal global systolic function, calculated EF of 69 %. Right ventricular cavity size is normal, global systolic RV function is normal. Valves, RV Pressures and Diastolic Function The aortic valve is normal in structure and trileaflet, no stenosis and no regurgitation. The mitral valve is normal in structure, trace mitral regurgitation. The tricuspid valve is normal in structure, mild tricuspid regurgitation. The tricuspid regurgitant velocity is 2.3 m/s, the estimated right ventricular systolic pressure is 21 mmHg plus right atrial pressure. MEASUREMENTS AND CALCULATIONS 2-D Measurements and LV Function: LVID (d) 3.8 cm Planimetered EF 69 % LVID (s) 1.8 cm LV FS% (2D) 51 % IVS (d) 1.1 cm HR 68 bpm LVPW (d) 0.9 cm Ao Sinus ULN 3.7 cm Asc Ao ULN 3.7 cm LA 2.5 cm Aortic Valve: Vmax 1.4 m/s Max PG 8 mmHg VTI 0.29 m Mean PG 4 mmHg LVOT V max 1.0 m/s Dim Index 0.62 LVOT VTI 0.18 m Tricuspid Valve and estimated PA pressures: TR Vmax 2.3 m/s TR maxG 21 mmHg . This study was interpreted by an [facility] accredited facility. Final Procedure Note Delroy Mary MD - 12/26/2024 ECHOCARDIOGRAM AMPARO JEAN : 1970 54 years Study Date: 12/26/2024 10:23:34 AM Gender: F BP: 133/77 mmHg Height: 165.00 cm BSA: 1.89 m Weight: 82.00 kg Tech: [facility] Referring MD: DELROY MARY Site: [facility] Reading Location: Mobile-OP Patient Location: Outpatient. Procedure: Limited 2D , Color Doppler and Limited Spectral Doppler. Indication for study: Stress-induced cardiomyopathy Cardiac Rhythm: Regular.Study quality: Fair. Final Impressions: Limited Echocardiogram performed 1. Normal left ventricular size, normal wall thickness, normal globalsystolic function, calculated EF of 69 %. 2. Right ventricular cavity size is normal, global systolic RV functionis normal. Comparison Compared to prior exam of 09/23/2024: There is now mild tricuspid regurgitation. Chamber Sizes and Function Normal left ventricular size, normal wall thickness, normal globalsystolic function, calculated EF of 69 %. Right ventricular cavity size isnormal, global systolic RV function is normal. Valves, RV Pressures and Diastolic Function The aortic valve is normal in structure and trileaflet, no stenosis and noregurgitation. The mitral valve is normal in structure, trace mitralregurgitation. The tricuspid valve is normal in structure, mild tricuspidregurgitation. The tricuspid regurgitant velocity is 2.3 m/s, theestimated right ventricular systolic pressure is 21 mmHg plus right atrialpressure. MEASUREMENTS AND CALCULATIONS 2-D Measurements and LV Function: LVID (d) 3.8 cm Planimetered EF 69 % LVID (s) 1.8 cm LV FS% (2D) 51 % IVS (d) 1.1 cm HR 68 bpm LVPW (d) 0.9 cm Ao Sinus ULN 3.7 cm Asc Ao ULN 3.7 cm LA 2.5 cm Aortic Valve: Vmax 1.4 m/s Max PG 8 mmHg VTI 0.29 m Mean PG 4 mmHg LVOT V max 1.0 m/s Dim Index 0.62 LVOT VTI 0.18 m Tricuspid Valve and estimated PA pressures: TR Vmax 2.3 m/s TR maxG 21 mmHg . This study was interpreted by an [facility] accredited facility. Final us Delroy Mary MD ECHO ORD Final Result * (ABNORMAL) LIPID PANEL (09/23/2024 4:17 AM CDT) CHOLESTEROL,TOTAL 243(H) 100 - 199 mg/dL 09/23/2024 4:58 AM CDT [facility] [employer] Comment: Cholesterol, Total Reference Ranges Desirable <200 mg/dL Borderline 200-239 mg/dL High >=240 mg/dL TRIGLYCERIDES 97 <150 mg/dL 09/23/2024 4:58 AM CDT [facility] HDL CHOLESTEROL 86 >40 mg/dL 4:58 AM CDT [facility] NON-HDL CHOLESTEROL 157(H) <145 mg/dl 09/23/2024 4:58 AM CDT [facility] CHOL/HDL RATIO 2.83 <4.50 09/23/2024 4:58 AM CDT [facility] LDL CHOLESTEROL 138(H) <=130 mg/dL 09/23/2024 4:58 AM CDT [facility] VLDL CHOLESTEROL 19 <=30 mg/dL 09/23/2024 4:58 AM CDT [facility] PROVIDER ORDERED STATUS RANDOM 09/23/2024 4:58 AM CDT [facility] Blood BLOOD SPECIMEN / Unknown Non-Lab Venipuncture / Unknown 09/23/2024 4:17 AM CDT 09/23/2024 4:29 AM CDT us Arnold Mckeon NP CHEMISTRY Final Result [facility] [address] [place] [address], [place] * XR MAMMO ALIYA BILAT SCREEN (12/02/2023 [...] For Patients: As a result of the Century Cures Act, medical imaging exams and procedure reports are released immediately into your electronic medical record. You may view this report before your referring provider. If you have questions, please contact your health care provider. XR MAMMO ALIYA BILAT SCREEN [[id number]] CLINICAL HISTORY: This is an asymptomatic 52 y.o. patient. INDICATION FOR EXAM: Mammogram Screening. TECHNIQUE: CC & MLO views were obtained. This study was evaluated with the assistance of Computer-Aided Detection. Breast Tomosynthesis was used in interpretation. COMPARISON FILM: Yes 08/13/22 [facility] 08/13/22 Outside Facility FINDINGS: There are scattered areas of fibroglandular density. There are no dominant masses, suspicious micro calcifications or areas of architectural distortion. us Lilliana De La Cruz DO MAMMO Final Resu lt * SCAN-COLONOSCOPY (06/25/2022 12:00 AM CDT) us Scanner OTHER Final Result * HPV HIGH RISK (05/26/2022 9:30 AM BILLIARD TABLE MECHANIC) TYPE 16 Negative Negative 05/31/2022 10:59 AM CDT [facility] TYPE 18 Negative Negative 05/31/2022 10:59 AM CDT [facility] OTHER HIGH RISK TYPES Negative Negative 05/31/2022 10:59 AM CDT [facility] Other (Cervical) 05/26/2022 9:30 AM BILLIARD TABLE MECHANIC 05/27/2022 12:29 PM BILLIARD TABLE MECHANIC Narrative [facility] - 05/31/2022 10:59 AM CDT HPV types 16, 18, 31, 33, 35, 39, 45, 51, 52, 56, 58, 59, 66 and 68 DNA were undetectable or below the pre-set threshold. Methodology: Juju Gerardo 4800 HPV Test us Marce Hunter MD MICROBIOLOGY Final Resu lt [facility] [address] [place] [address], from Last 3 Months or Most Recently Relevant to Health Maintenance Insurance [facility] [employer] Advance Directives * Full Code (Latest Code Status on File) Date Activated Date Inactivated Comments 09/22/2024 7:21 PM 09/24/2024 5:05 PM Question Answer Comments Code Status Discussion: Reviewed Preferences * Full Code Date Activated Date Inactivated Comments 05/17/2007 1:11 AM 05/19/2007 1:42 PM Care Teams President And Chief Commercial Officer Relationship Specialty Start Date End Date Lilliana De [place] [address] PCP - General Family Practice 11/11/23
[2025-02-08 03:23] VITALS: BP 167/115; PULSE 113; RESP 18; TEMP 37; O2SAT 96; BMI 31.5
[2025-02-08] MEDS: TRANEXAMIC ACID 100 MG/ML INJ 1000 MG TOPICAL (03:47)
[2025-02-08 04:02] VITALS: BP 139/92; PULSE 81; RESP 16; O2SAT 98
--- NOTE | 2025-02-08 05:42 | ED.GENADULT ---
HPI - General Adult General Chief complaint: Epistaxis/Nosebleed Stated complaint: bloody nose Time Seen by Provider: 02/08/25 03:28 Source: patient Mode of arrival: ambulatory Limitations: no limitations History of Present Illness HPI narrative: 54-year-old female presents the emergency department for evaluation of nosebleed started about 10 minutes prior to arrival. No interventions tried at home prior to coming to ED. Tends to get a nosebleed about once a year per her report. She does have a humidifier at home but has not started running it for the season yet. No trauma or injury. No prior history of cauterization. She does not take any anticoagulants. She did take some Kelli-Calumet Plus and she wonders if that could have triggered her symptoms, these do happen to contain aspirin. On specific questioning, she does work at [employer], spending a lot of time going in an out of walk-in coolers and freezers. She had not connected that this could be triggering some of her symptoms also. Feels a little lightheaded and dizzy, no emesis. No history of coagulopathy. Blood work from the last few months demonstrates a hemoglobin of 16.8 with normal platelets. Allergies to Compazine, long-term medications reviewed, patient reports no recent changes to these. Denies prior nasal surgeries, no anticoagulants. ROS is notable for the nausea and nosebleed symptoms as above, otherwise reports that health has been stable times 12 systems. Related Data Home Medications ?Medication ?Instructions ?Recorded ?Confirmed fluoxetine 40 mg capsule 40 mg PO QDAY 05/26/22 02/01/25 lamotrigine 200 mg tablet 200 mg PO QDAY 05/26/22 02/01/25 atomoxetine 40 mg capsule 40 mg PO QAM 08/05/22 01/24/23 atomoxetine 25 mg capsule mg PO 01/24/23 01/24/23 atomoxetine 80 mg capsule 80 mg PO QAM 01/24/23 02/01/25 hydroxyzine HCl 25 mg tablet 25 mg PO DAILY 01/24/23 02/01/25 Allergies Allergy/AdvReac Type Severity Reaction Status Date / Time prochlorperazine (From Allergy Verified 02/08/25 03:25 Compazine) [facility] Medical History Fibroid uterus ?D25.9 - Leiomyoma of uterus, unspecified (ICD-10) Hyperlipidemia ?E78.5 - Hyperlipidemia, unspecified (ICD-10) Pelvic mass ?R19.00 - Intra-abdominal and pelvic swelling, mass and lump, unspecified site (ICD-10) Screening mammogram for breast cancer ?Z12.31 - Encounter for screening mammogram for malignant neoplasm of breast (ICD-10) Screening for diabetes mellitus ?Z13.1 - Encounter for screening for diabetes mellitus (ICD-10) Screening for hyperlipidemia ?Z13.220 - Encounter for screening for lipoid disorders (ICD-10) Screening for cervical cancer ?Z12.4 - Encounter for screening for malignant neoplasm of cervix (ICD-10) Family history of colon cancer ?Z80.0 - Family history of malignant neoplasm of digestive organs (ICD-10) Epistaxis ?R04.0 - Epistaxis (ICD-10) Encounter for well woman exam with routine gynecological exam ?Z01.419 - Encounter for gynecological examination (general) (routine) without abnormal findings (ICD-10) delivery delivered ?O82 - Encounter for delivery without indication (ICD-10) No significant past medical history Surgical History History of section ?Z98.891 - History of uterine scar from previous surgery (ICD-10) Family History Sister Asthma Maternal Grandmother Breast cancer, Onset Age: 75 Paternal Grandmother Diabetes Stroke, Onset Age: 80 Father High blood pressure Brother Colon cancer 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 , 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, 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, 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, 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 alcohol Smoking Status: Never smoker Do you use any of these nicotine containing products: None Second hand tobacco smoke exposure: No Non-prescribed substance use: denies use service: No Exam Const: Vital Signs, click to edit/add: Vital Signs - 24 hr 02/08/25 03:23 02/08/25 04:02 Temperature 98.6 F Pulse Rate [Pulse Oximeter] 113 H 81 Respiratory Rate 18 16 Blood Pressure [Ri ght Upper Arm] 167/115 H 139/92 H Pulse Oximetry 96 98 Oxygen Delivery Me thod Room Air Room Air Documenting provider has reviewed patient's vital signs: yes General appearance: cooperative Other: Mild distress due to bleeding, appears slightly pale but redirectable. HENMT: Common normals: normocephalic and moist oral mucous membranes Head and scalp: normocephalic Other: Dried blood in the oropharynx, no active bleeding down the back of the throat. Nasal clamp was applied in triage. There was some blood crusting around the nares. I removed the clamp and see the area that was likely the source of bleeding in the right anterior plexus. It is oozing also slightly when I take the clamp off, clamp was reapplied but most of the bleeding has been stopped with the clamp on for 5 minutes. No bleeding noted from the left near. No large clots or signs of posterior hemorrhage. Eye: Common normals: conjunctivae normal General eye: normal appearance of both eyes Conjunctiva: conjunctiva(e) normal Neck & C-Spine: General: normal visual inspection Resp: Common normals: normal respiratory effort Effort & inspection: able to speak in complete sentences Extremity: Common normals: normal to inspection, normal capillary refill and no pedal edema Psych: Appearance: grossly normal Attitude: engaged Insight: insight good Judgement: judgment good Skin: Common normals: no rashes or lesions noted General skin exam: no rashes or lesions noted Course Course ED Course: 52-year-old female with nose bleed. No anticoagulants, no signs of posterior bleed, hypotension, tachycardia or severe hemorrhage. Clip applied. Her reexamined and it does appear to be working well. Recommended TXA, 5 mL applied to right Rushing, clamp reapplied. Clamp allowed to sit for another 15 minutes, patient rinsed her mouth, gargle, is feeling much better. Clamp removed, observed for a period of another 20 minutes with no return of bleeding. Counseled patient on management and plan. Most likely this was related to dry, cold air from the walk-in for users in people that her just prone to this. She needs to start using her humidifier at night to help soothe her nasal passages and allow them to heal. Consider using nasal saline gel when she has to spend a lot of time in the freezer. She is given a pair of nasal clamps to have, 1 for work and 1 for her bedside in case she gets bleeds again. Discussed if she does get another bleed, apply the clamp, tried to lay down for about 20 minutes and see if she can get the bleeding to stop. If not, I would recommend re-evaluation in the ED, call 911 or call for help from another helpful adult if needed. Her blood work in the past has not demonstrated any abnormalities that would be contributing to her nose bleeds. She is happy with the progress here. Will discharge home. She will wear the clamp home and she may take it off once she gets home. I would like for her to rest for another hour prior to any vigorous activity to let the clot fully mature. Home from work today, may return to typical duties tomorrow. Written instructions provided outlining this plan as well. She verbalizes understanding and agreement. Vital Signs Vital signs: Initial Vital Signs Temperature 98.6 F 02/08/25 03:23 Temperature Source Temporal Artery Scan 02/08/25 03:23 Pulse Rate 113 H 02/08/25 03:23 Respiratory Rate 18 02/08/25 03:23 Blood Pressure 167/115 H 02/08/25 03:23 Blood Pressure Mean 132 H 02/08/25 03:23 Blood Pressure Position Sitting 02/08/25 03:23 Pulse Oximetry 96 02/08/25 03:23 Oxygen Delivery Method Room Air 02/08/25 03:23 Vital Signs Temperature 98.6 F 02/08/25 03:23 Pulse Rate 113 H 02/08/25 03:23 Respiratory Rate 18 02/08/25 03:23 Blood Pressure 167/115 H 02/08/25 03:23 Pulse Oximetry 96 02/08/25 03:23 Oxygen Delivery Method Room Air 02/08/25 03:23 Temperature 98.6 F 02/08/25 03:23 Pulse Rate 81 02/08/25 04:02 Respiratory Rate 16 02/08/25 04:02 Blood Pressure 139/92 H 02/08/25 04:02 Pulse Oximetry 98 02/08/25 04:02 Oxygen Delivery Method Room Air 02/08/25 04:02 Medications Administered Medications: Discontinued Medications Generic Name Dose Route Start Last Admin Trade Name Freq PRN Reason Stop Dose Admin Tranexamic Acid 1,000 mg 02/08/25 03:44 02/08/25 03:47 Tranexamic Acid 100 Mg/Ml Inj TOPICAL 02/08/25 03:45 1,000 mg ONCE ONE Administration Discharge Plan Discharge Clinical Impression: Acute anterior epistaxis Patient Disposition: Home, Self-Care Condition: Improved Instructions: Nosebleed (ED) Additional Instructions: As we discussed, the area of bleeding is the typical, most common area where this tends to happen for people. Dry air, cold air, walk-in freezers can increase nasal irritation. I would recommend that you use nasal saline gel 1-2 times daily to help keep the nasal tissue lubricated and less likely to crack. You should also consider running a humidifier or cool mist vaporizer in your bedroom overnight while you sleep. This will help the tissues heal more easily and be less likely to bleed. We will send you home with a nasal clamp. Should he get another nose bleed, apply the clamp and let it set for 20 minutes. After 20 minutes, try to remove the clamp and see how things go. If the bleeding does not slow, reapplied the clamp and come to the emergency room. The aspirin in your Kelli-Calumet could have triggered your symptoms tonight as well. Activity Level: Activity as Tolerated Discharge Diet: Regular Prescriptions: No Action atomoxetine 40 mg capsule 40 mg PO QAM atomoxetine 80 mg capsule 80 mg PO QAM hydroxyzine HCl 25 mg tablet 25 mg PO DAILY atomoxetine 25 mg capsule PO fluoxetine 40 mg capsule 40 mg PO QDAY lamotrigine 200 mg tablet 200 mg PO QDAY Follow Up/Referrals: Provider,Not a Local [Primary Care Provider, Family Practice] Stand Alone Forms: [employer] Info Instructions
== END 2025-02-08 04:52 | disposition home or self-care (01) ==
PROVIDERS: Emergency Provider Family Medicine
DX: R04.0 Epistaxis (principal)
CPT/HCPCS: 99283

== ENCOUNTER 2025-02-10 17:48 | Emergency (ER) | payer OTHER, SELFPAY ==
[2025-02-10 17:49] VITALS: BP 157/116; PULSE 112; RESP 18; TEMP 36.9; O2SAT 98
--- OUTSIDE RECORDS SUMMARY | 2025-02-10 17:49 | XMS_ITS | Clinical Summary ---
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 Operator Paraffin Plant Name Role Phone Lilliana De La Cruz Primary Care Provider [phone] Allergies Active Allergy Reactions Criticality Noted Date [...] Description 12/31/2024 8:30 AM CDT Office Visit [facility] [address] [place] [address] Kain Gee MD Follow Up; Medication Management (very well) 12/31/2024 Travel 12/26/2024 10:00 AM CDT Ancillary Procedure [facility] [address] [place] [address] 12/26/2024 Travel 11/26/2024 9:30 AM CDT Office Visit [facility] [address] [place] [address] Kain Gee MD Follow Up; Medication Management [...] on file Legal Sex Female 5:25 AM HAY BUCKLER Gender Identity Not on file Sexual Orientation [...] tion Livin g 10 10 fajardo Delivery Location:[place] 004 36w 0d 2.89 kg (6 lb 6 oz) M C-Sec tion Livin g 7 9 ehresm krysten Delivery Location:[place] Last Filed Vital Signs Vital Sign Reading [...] st Contact Info) Description 04/02/2025 10:00 AM HAY BUCKLER Office Visit [facility] [address] [place] [address] Kain Gee MD [address] [place] [address] Health Maintenance Due Date Last Done Comments [...] HPV HIGH RISK Routine 05/26/2022 9:30 AM HAY BUCKLER from Last 3 Months or Most Recently [...] Tech: ANANYA Referring MD: DELROY MARY Site: [facility] Reading Location: Mobile-OP Patient Location: Outpatient. [...] . This study was interpreted by an [facility] accredited facility. Final Procedure Note Delroy Mary MD - 12/26/2024 ECHOCARDIOGRAM AMPARO JEAN : 1970 54 years Study Date: 12/26/2024 10:23:34 AM Gender: F BP: 133/77 mmHg Height: 165.00 cm BSA: 1.89 m Weight: 82.00 kg Tech: [facility] Referring MD: DELROY MARY Site: [facility] Reading Location: Mobile-OP Patient Location: Outpatient. [...] . This study was interpreted by an [facility] accredited facility. Final us Delroy Mary MD ECHO ORD Final Result * (ABNORMAL) LIPID PANEL (09/23/2024 4:17 AM CDT) CHOLESTEROL,TOTAL 243(H) 100 - 199 mg/dL 09/23/2024 4:58 AM CDT [facility] Comment: Cholesterol, Total Reference Ranges Desirable <200 mg/dL Borderline 200-239 mg/dL High >=240 mg/dL TRIGLYCERIDES 97 <150 mg/dL 09/23/2024 4:58 AM CDT [facility] HDL CHOLESTEROL 86 >40 mg/dL 4:58 AM CDT [facility] NON-HDL CHOLESTEROL 157(H) <145 mg/dl 09/23/2024 4:58 AM CDT [facility] CHOL/HDL RATIO 2.83 <4.50 09/23/2024 4:58 AM CDT [facility] LDL CHOLESTEROL 138(H) <=130 mg/dL 09/23/2024 4:58 AM CDT [facility] VLDL CHOLESTEROL 19 <=30 mg/dL 09/23/2024 4:58 AM CDT [facility] PROVIDER ORDERED STATUS RANDOM 09/23/2024 4:58 AM CDT [facility] Blood BLOOD SPECIMEN / Unknown Non-Lab Venipuncture / Unknown 09/23/2024 4:17 AM CDT 09/23/2024 4:29 AM CDT us Arnold Mckeon NP CHEMISTRY Final Result [facility] [address] [place] [address], [place] * XR MAMMO ALIYA BILAT SCREEN [...] care provider. XR MAMMO ALIYA BILAT SCREEN [[id number]] CLINICAL HISTORY: This is an asymptomatic 52 y.o. patient. INDICATION FOR EXAM: Mammogram Screening. TECHNIQUE: CC & MLO views were obtained. This study was evaluated with the assistance of Computer-Aided Detection. Breast Tomosynthesis was used in interpretation. COMPARISON FILM: Yes 08/13/22 [facility] 08/13/22 Outside Facility FINDINGS: There are scattered areas of fibroglandular density. There are no dominant masses, suspicious micro calcifications or areas of architectural distortion. us Lilliana De La Cruz DO MAMMO Final Resu lt * SCAN-COLONOSCOPY (06/25/2022 12:00 AM CDT) us Scanner OTHER Final Result * HPV HIGH RISK (05/26/2022 9:30 AM HAY BUCKLER) TYPE 16 Negative Negative 05/31/2022 10:59 AM CDT [facility] TYPE 18 Negative Negative 05/31/2022 10:59 AM CDT [facility] OTHER HIGH RISK TYPES Negative Negative 05/31/2022 10:59 AM CDT [facility] Other (Cervical) 05/26/2022 9:30 AM HAY BUCKLER 05/27/2022 12:29 PM HAY BUCKLER Narrative [facility] - 05/31/2022 10:59 AM CDT HPV types 16, 18, 31, 33, 35, 39, 45, 51, 52, 56, 58, 59, 66 and 68 DNA were undetectable or below the pre-set threshold. Methodology: Juju Gerardo 4800 HPV Test us Marce Hunter MD MICROBIOLOGY Final Resu lt [facility] [address] [place] [address], from Last 3 Months or Most Recently Relevant to Health Maintenance Insurance [facility] [employer] [employer] Advance Directives * Full Code (Latest Code Status on File) Date Activated Date Inactivated Comments 09/22/2024 7:21 PM 09/24/2024 5:05 PM Question Answer Comments Code Status Discussion: Reviewed Preferences * Full Code Date Activated Date Inactivated Comments 05/17/2007 1:11 AM 05/19/2007 1:42 PM Care Teams Leak Operator Paraffin Plant Relationship Specialty Start Date End Date Lilliana De [place] [address] PCP - General Family Practice 11/11/23
--- OUTSIDE RECORDS SUMMARY | 2025-02-10 17:49 | XMS_ITS | Clinical Summary ---
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
--- NOTE | 2025-02-10 18:39 | ED_ITS ---
HPI - General Adult General Date Seen: 02/10/25 Chief complaint: Epistaxis/Nosebleed Stated complaint: Bloody Nose Time Seen by Provider: 02/10/25 17:53 Source: patient Mode of arrival: ambulatory Limitations: no limitations History of Present Illness HPI narrative: Patient is a very nice 54-year-old female presents here with bleeding out of her right nares, she was in the emergency room 2 days ago with similar, she was given a nasal clamp, given some TXA, and the bleeding is been off and on since she says she does not have time for this. She notes it least once yearly she will have problems with bleeding nose, she has received packing in the past, and also receive cautery she has not been to the ENT physician in a while she is on no anticoagulants. No history of trauma, it is thought possibly this is due to dry air. She denies any dizziness lightheadedness, chest pain shortness of breath or any other symptoms. Related Data Home Medications ?Medication ?Instructions ?Recorded ?Confirmed fluoxetine 40 mg capsule 40 mg PO QDAY 05/26/2202/10 lamotrigine 200 mg tablet 200 mg PO QDAY 05/26/2201/20 atomoxetine 40 mg capsule 40 mg PO QAM 08/05/22 atomoxetine 25 mg capsule mg PO 01/24/23 01/24/23 atomoxetine 80 mg capsule 80 mg PO QAM 01/24/23 hydroxyzine HCl 25 mg tablet 25 mg PO DAILY 01/24/23 1 04/12/24 Allergies Allergy/AdvReac Type Severity Reaction Status Date / Time prochlorperazine (From Allergy Verified 02/10/25 17:56 Compazine) Review of Systems Status of ROS: Reports: 10 or more systems reviewed and unremarkable except as noted in History and below [facility] Medical History Fibroid uterus ?D25.9 - Leiomyoma of uterus, unspecified (ICD-10) Hyperlipidemia ?E78.5 - Hyperlipidemia, unspecified (ICD-10) Pelvic mass ?R19.00 - Intra-abdominal and pelvic swelling, mass and lump, unspecified site (ICD-10) Screening mammogram for breast cancer ?Z12.31 - Encounter for screening mammogram for malignant neoplasm of breast (ICD-10) Screening for diabetes mellitus ?Z13.1 - Encounter for screening for diabetes mellitus (ICD-10) Screening for hyperlipidemia ?Z13.220 - Encounter for screening for lipoid disorders (ICD-10) Screening for cervical cancer ?Z12.4 - Encounter for screening for malignant neoplasm of cervix (ICD-10) Family history of colon cancer ?Z80.0 - Family history of malignant neoplasm of digestive organs (ICD-10) Epistaxis ?R04.0 - Epistaxis (ICD-10) Encounter for well woman exam with routine gynecological exam ?Z01.419 - Encounter for gynecological examination (general) (routine) without abnormal findings (ICD-10) delivery delivered ?O82 - Encounter for delivery without indication (ICD-10) No significant past medical history Surgical History History of section ?Z98.891 - History of uterine scar from previous surgery (ICD-10) Family History Sister Asthma Maternal Grandmother Breast cancer, Onset Age: 75 Paternal Grandmother Diabetes Stroke, Onset Age: 80 Father High blood pressure Brother Colon cancer 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 Seems to be a little bit of blood coming down the back of her throat. Her throat is otherwise normal mouth opening normal, cranial nerves 3-12 are normal, she has no petechiae, and she has good cap refill, good conjunctival perfusion. I discussed with her, use of a nasal pack, using hurricane spray along with Afrin, 2 squirts in the right nostril. I was able to the atraumatically apply nasal balloon pack, anterior 5.5 cm. This was done with 1 mL of air. Const: Vital Signs, click to edit/add: Vital Signs - 24 hr 02/10/25 17:49 Temperature 98.5 F Pulse Rate [Right Pulse Oximeter] 112 H Respiratory Rate 18 Blood Pressure [Ri ght Upper Arm] 157/116 H Pulse Oximetry 98 Oxygen Delivery Me thod Room Air Documenting provider has reviewed patient's vital signs: yes Course Course ED Course: 5.5 cm anterior nasal pack was applied, with 1 mL of air to the balloon. This resulted in good hemostasis, no further air had to be infused. Patient will be discharged with a prescription for amoxicillin, and follow-up with primary care in 48 hours note for work off until the 27th Vital Signs Vital signs: Initial Vital Signs Temperature 98.5 F 02/10/25 17:49 Temperature Source Temporal Artery Scan 02/10/25 17:49 Pulse Rate 112 H 02/10/25 17:49 Pulse Rhythm Regular 02/10/25 17:49 Pulse Strength 3+ Normal 02/10/25 17:49 Respiratory Rate 18 02/10/25 17:49 Blood Pressure 157/116 H 02/10/25 17:49 Blood Pressure Mean 129 H 02/10/25 17:49 Blood Pressure Position Sitting 02/10/25 17:49 Pulse Oximetry 98 02/10/25 17:49 Oxygen Delivery Method Room Air 02/10/25 17:49 Vital Signs Temperature 98.5 F 02/10/25 17:49 Pulse Rate 112 H 02/10/25 17:49 Respiratory Rate 18 02/10/25 17:49 Blood Pressure 157/116 H 02/10/25 17:49 Pulse Oximetry 98 02/10/25 17:49 Oxygen Delivery Method Room Air 02/10/25 17:49 Temperature 98.5 F 02/10/25 17:49 Pulse Rate 112 H 02/10/25 17:49 Respiratory Rate 18 02/10/25 17:49 Blood Pressure 157/116 H 02/10/25 17:49 Pulse Oximetry 98 02/10/25 17:49 Oxygen Delivery Method Room Air 02/10/25 17:49 Medical Decision Making Medical Records Medical records reviewed: Yes I reviewed the patient's medical records Discharge Plan Discharge Clinical Impression: Recurrent epistaxis Patient Disposition: Home, Self-Care Condition: Stable Instructions: Nosebleed (ED) Additional Instructions: Nasal pack should come out in 48 hours, this typically is done with your primary, although sometimes seeing an ENT doctor might be advantageous also. Dr. Connell is our ENT. Take your antibiotics as directed. Activity Level: Light activity Discharge Diet: Regular Prescriptions: No Action atomoxetine 40 mg capsule 40 mg PO QAM atomoxetine 80 mg capsule 80 mg PO QAM hydroxyzine HCl 25 mg tablet 25 mg PO DAILY atomoxetine 25 mg capsule PO fluoxetine 40 mg capsule 40 mg PO QDAY lamotrigine 200 mg tablet 200 mg PO QDAY Follow Up/Referrals: Provider,Not a Local [Primary Care Provider, Family Practice] Stand Alone Forms: [facility]School [facility], [facility] Inst[facility]
[2025-02-10 19:19] VITALS: BP 147/93; PULSE 94; RESP 18; O2SAT 93
[2025-02-10] MEDS: BENZOCAINE 20 % SPRAY 1 EACH NOSTRIL-B (19:59)
[2025-02-10] MEDS: OXYMETAZOLINE 0.05% NASAL SPRAY 1 SPRAY NOSTRIL-B (19:59)
== END 2025-02-10 20:02 | disposition home or self-care (01) ==
LOC: ED 18:35
PROVIDERS: Emergency Provider Family Medicine
DX: R04.0 Epistaxis (principal)
CPT/HCPCS: 30901; 99284; A9270

== ENCOUNTER 2025-02-11 04:59 | Emergency (ER) | payer OTHER, SELFPAY ==
[2025-02-11 05:02] VITALS: BP 131/90; PULSE 106; RESP 18; TEMP 36.7; O2SAT 96; BMI 31.5
--- OUTSIDE RECORDS SUMMARY | 2025-02-11 05:02 | XMS_ITS | Clinical Summary ---
Author Organization [employer] [facility] [facility] Address [address] [place] [address] Care Team Providers Care Consultants Intern Name Role Phone Lilliana De La Cruz Primary Care Provider [phone] Allergies Active Allergy Reactions Criticality Noted Date [...] Description 12/31/2024 8:30 AM CDT Office Visit [facility] [address] [place] [address] Kain Gee MD Follow Up; Medication Management (very well) 12/31/2024 Travel 12/26/2024 10:00 AM CDT Ancillary Procedure [facility] [address] [place] [address] 12/26/2024 Travel 11/26/2024 9:30 AM CDT Office Visit [facility] [address] [place] [address] Kain Gee MD Follow Up; Medication Management [...] on file 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 Gender Identity Not on file Sexual Orientation [...] tion Livin g 10 10 fajardo Delivery Location:[facility] 004 36w 0d 2.89 kg (6 lb 6 oz) M C-Sec tion Livin g 7 9 ehresm krysten Delivery Location:[facility] Last Filed Vital Signs Vital Sign Reading [...] st Contact Info) Description 04/02/2025 10:00 AM FITTINGS FINISHER Office Visit [facility] [address] [place] [address] Kain Gee MD [address] [place] [address] Health Maintenance Due Date Last Done Comments [...] HPV HIGH RISK Routine 05/26/2022 9:30 AM FITTINGS FINISHER from Last 3 Months or Most Recently [...] Tech: ANANYA Referring MD: DELROY MARY Site: [facility] Reading Location: Mobile-OP Patient Location: [...] . This study was interpreted by an [facility] accredited facility. Final Procedure Note Delroy Mary MD - 12/26/2024 ECHOCARDIOGRAM AMPARO JEAN : 1970 54 years Study Date: 12/26/2024 10:23:34 AM Gender: F BP: 133/77 mmHg Height: 165.00 cm BSA: 1.89 m Weight: 82.00 kg Tech: [facility] Referring MD: DELROY MARY Site: [facility] Reading Location: Mobile-OP Patient Location: [...] . This study was interpreted by an [facility] accredited facility. Final us Delroy Mary MD ECHO ORD Final Result * (ABNORMAL) LIPID PANEL (09/23/2024 4:17 AM CDT) CHOLESTEROL,TOTAL 243(H) 100 - 199 mg/dL 09/23/2024 4:58 AM CDT [facility] Comment: Cholesterol, Total Reference Ranges Desirable <200 mg/dL Borderline 200-239 mg/dL High >=240 mg/dL TRIGLYCERIDES 97 <150 mg/dL 09/23/2024 4:58 AM CDT [facility] HDL CHOLESTEROL 86 >40 mg/dL 4:58 AM CDT [facility] NON-HDL CHOLESTEROL 157(H) <145 mg/dl 09/23/2024 4:58 AM CDT [facility] CHOL/HDL RATIO 2.83 <4.50 09/23/2024 4:58 AM CDT [facility] LDL CHOLESTEROL 138(H) <=130 mg/dL 09/23/2024 4:58 AM CDT [facility] VLDL CHOLESTEROL 19 <=30 mg/dL 09/23/2024 4:58 AM CDT [facility] PROVIDER ORDERED STATUS RANDOM 09/23/2024 4:58 AM CDT [facility] Blood BLOOD SPECIMEN / Unknown Non-Lab Venipuncture / Unknown 09/23/2024 4:17 AM CDT 09/23/2024 4:29 AM CDT us Arnold Mckeon NP CHEMISTRY Final Result [facility] [address] [place] [address], [place] * XR MAMMO ALIYA BILAT SCREEN [...] care provider. XR MAMMO ALIYA BILAT SCREEN [[id number]] CLINICAL HISTORY: This is an asymptomatic 52 y.o. patient. INDICATION FOR EXAM: Mammogram Screening. TECHNIQUE: CC & MLO views were obtained. This study was evaluated with the assistance of Computer-Aided Detection. Breast Tomosynthesis was used in interpretation. COMPARISON FILM: Yes 08/13/[address] [facility] 08/13/22 Outside Facility FINDINGS: There are scattered areas of fibroglandular density. There are no dominant masses, suspicious micro calcifications or areas of architectural distortion. us Lilliana De La Cruz DO MAMMO Final Resu lt * SCAN-COLONOSCOPY (06/25/2022 12:00 AM CDT) us Scanner OTHER Final Result * HPV HIGH RISK (05/26/2022 9:30 AM FITTINGS FINISHER) TYPE 16 Negative Negative 05/31/2022 10:59 AM CDT [facility] TYPE 18 Negative Negative 05/31/2022 10:59 AM CDT [facility] OTHER HIGH RISK TYPES Negative Negative 05/31/2022 10:59 AM CDT [facility] Other (Cervical) 05/26/2022 9:30 AM FITTINGS FINISHER 05/27/2022 12:29 PM FITTINGS FINISHER Narrative [facility] - 05/31/2022 10:59 AM CDT HPV types 16, 18, 31, 33, 35, 39, 45, 51, 52, 56, 58, 59, 66 and 68 DNA were undetectable or below the pre-set threshold. Methodology: Juju Gerardo 4800 HPV Test us Marce Hunter MD MICROBIOLOGY Final Resu lt [facility] [address] [place] [address], from Last 3 Months or Most Recently Relevant to Health Maintenance Insurance [facility] [employer] [facility] Advance Directives * Full Code (Latest Code Status on File) Date Activated Date Inactivated Comments 09/22/2024 7:21 PM 09/24/2024 5:05 PM Question Answer Comments Code Status Discussion: Reviewed Preferences * Full Code Date Activated Date Inactivated Comments 05/17/2007 1:11 AM 05/19/2007 1:42 PM Care Teams Consultants Intern Relationship Specialty Start Date End Date Lilliana [place] [address] PCP - General Family Practice 11/11/23
--- OUTSIDE RECORDS SUMMARY | 2025-02-11 05:02 | XMS_ITS | Clinical Summary ---
Author Organization [facility] Address [address] [place] [address] Care Team Providers Care Supervisor Sawing And Assembly Name Role Phone [facility]- Primary Care Provider Allergies Active Allergy Reactions [...] on file Legal Sex Female 4:44 AM TROUBLE CLERK Gender Identity Not on file Sexual Orientation [...] 87.1 kg (192 lb) 03/19/2021 2:42 PM TROUBLE CLERK Height - - Body Mass Index - [...] age to complete this topic Care Teams Supervisor Sawing And Assembly Relationship Specialty Start Date End Date [facility]- [address] [place] [address] PCP - General 08/30/22
[2025-02-11] MEDS: TRANEXAMIC ACID 100 MG/ML INJ 1000 MG TOPICAL (05:34)
[2025-02-11 05:59] LABS: Hematocrit* 48.4 % (33.0-51.0); Hemoglobin* 16.1 gm/dL (12.0-16.0); Immature Granulocytes Abs Auto 0.02 K/uL (0.00-0.30); Immature Granulocytes Pct Auto 0.2 %; Lymphocytes Absolute Auto 2.59 K/uL (0.90-2.90); Mean Corpuscular HGB Conc 33 gm/dL (32-36); Mean Corpuscular Hemoglobin 30 pg (26-34); Mean Corpuscular Volume 90 fL (80-100); RDW Coefficient of Variation % 12.8 % (11.5-15.5); Red Blood Count* 5.36 m/uL (4.00-5.20); Slide Review Reflex No; White Blood Count* 9.40 K/uL (4.50-11.00)
[2025-02-11] MEDS: BENZOCAINE 20 % SPRAY 1 EACH NOSTRIL-R (06:13)
[2025-02-11 06:16] LABS: Chloride* 103 mmol/L (96-114); Potassium* 3.7 mmol/L (3.6-5.1); Sodium* 136 mmol/L (135-149)
[2025-02-11 06:19] LABS: Anion Gap 6 mEq/L (7-15); Blood Urea Nitrogen* 15 mg/dL (7-30); Calcium* 10.0 mg/dL (8.4-10.6); Carbon Dioxide* 27 mmol/L (20-32); Creatinine* 0.8 mg/dL (0.5-1.5); Est. Creatinine Clearance* 77.01; Estimated Glomerular Filt Rate 89 ml/min; Glucose* 138 mg/dL (60-115)
[2025-02-11 06:21] LABS: INR 0.85 (0.91-1.10); Prothrombin Time 12.4 Seconds
--- NOTE | 2025-02-11 07:02 | ED.GENADULT ---
HPI - General Adult General Chief complaint: Epistaxis/Nosebleed Stated complaint: nose bleed Time Seen by Provider: 02/11/25 05:04 Source: patient Mode of arrival: ambulatory Limitations: no limitations History of Present Illness HPI narrative: 54-year-old female presents to the emergency department for recurrent nosebleed. Was evaluated yesterday, nasal balloon was placed. She had had a small anterior nose bleed a couple of days prior that was able to be controlled in the ED, but bleeding restarted, becoming brisk yesterday. ED notes reviewed. She has not had blood work since September but does not have a history of coagulopathy. She does not take any blood thinners. She has had no head or nasal trauma. She feels a little nauseated and lightheaded from the bleeding but no severe symptoms. There is no respiratory or cardiac changes. No fever. 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 Clinic has not yet open for her to get an appointment. ED notes reviewed. Past medical history unchanged. Notable for depression. Home meds reviewed. ROS notable for the nosebleed only. No other generalized, HEENT, hematological, respiratory or GI changes. Related Data Home Medications ?Medication ?Instructions ?Recorded ?Confirmed fluoxetine 40 mg capsule 40 mg PO QDAY 05/26/22 02/10/25 lamotrigine 200 mg tablet 200 mg PO QDAY 05/26/22 02/10/25 atomoxetine 40 mg capsule 40 mg PO QAM 08/05/22 02/10/25 atomoxetine 25 mg capsule mg PO 01/24/23 01/24/23 atomoxetine 80 mg capsule 80 mg PO QAM 01/24/23 02/10/25 hydroxyzine HCl 25 mg tablet 25 mg PO DAILY 01/24/23 02/10/25 Allergies Allergy/AdvReac Type Severity Reaction Status Date / Time prochlorperazine (From Allergy Verified 02/10/25 17:56 Compazine) [facility] Medical History Fibroid uterus ?D25.9 - Leiomyoma of uterus, unspecified (ICD-10) Hyperlipidemia ?E78.5 - Hyperlipidemia, unspecified (ICD-10) Pelvic mass ?R19.00 - Intra-abdominal and pelvic swelling, mass and lump, unspecified site (ICD-10) Screening mammogram for breast cancer ?Z12.31 - Encounter for screening mammogram for malignant neoplasm of breast (ICD-10) Screening for diabetes mellitus ?Z13.1 - Encounter for screening for diabetes mellitus (ICD-10) Screening for hyperlipidemia ?Z13.220 - Encounter for screening for lipoid disorders (ICD-10) Screening for cervical cancer ?Z12.4 - Encounter for screening for malignant neoplasm of cervix (ICD-10) Family history of colon cancer ?Z80.0 - Family history of malignant neoplasm of digestive organs (ICD-10) Epistaxis ?R04.0 - Epistaxis (ICD-10) Encounter for well woman exam with routine gynecological exam ?Z01.419 - Encounter for gynecological examination (general) (routine) without abnormal findings (ICD-10) delivery delivered ?O82 - Encounter for delivery without indication (ICD-10) No significant past medical history Surgical History History of section ?Z98.891 - History of uterine scar from previous surgery (ICD-10) Family History Sister Asthma Maternal Grandmother Breast cancer, Onset Age: 75 Paternal Grandmother Diabetes Stroke, Onset Age: 80 Father High blood pressure Brother Colon cancer 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 , 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, 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, 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, 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 Nasal balloon is in place, leaking around it. Appears slightly pale but conversational, good historian. HENMT: Common normals: normocephalic and oropharynx normal Head and scalp: normocephalic Eye: Common normals: conjunctivae normal General eye: normal appearance of both eyes Conjunctiva: conjunctiva(e) normal Resp: Common normals: normal respiratory effort and no use of accessory muscles Effort & inspection: able to speak in complete sentences Cardio: Common normals: regular rate, regular rhythm, S1 normal heart sound, S2 normal heart sound and no murmurs Rate: regular rate Rhythm: regular rhythm Heart sounds: S1 normal and S2 normal Neuro: Common normals: moves all extremities and no focal motor deficits Sensorium/orientation: alert Psych: Appearance: grossly normal Attitude: engaged Activity/motor behavior: appropriate eye contact Insight: insight good Judgement: judgment good Skin: Common normals: no rashes or lesions noted General skin exam: no rashes or lesions noted Course Course ED Course: 54-year-old female with recurrent nose bleed, right-sided. Clearly bleeding around the nasal balloon. Nasal balloon is deflated but it really did not have much pressure and all, I do wonder if the balloon had failed. Packing slowly removed, TXA sprayed into right nostril and clamp applied. This certainly did slow the bleeding considerably. A let this sit for about 10 minutes while we discussed next steps. Recommended some blood work just to make sure that platelets are normal, INR normal, hemoglobin is okay with all of this. She was agreeable to this. Nasal clamp was left in place, I did had to tend to a more urgent procedure and nenana back about 45 minutes later. Bleeding is controlled with the clamp but does quickly restart after removal of the clamp. It does appear to be coming from high anterior source or possibly posterior but I think it is just high anterior. Certainly not close to the Rushing like it was a few days ago. Her cane applied to the right nostril, let sit for 2 minutes. I then applied the remaining 1 mL of TXA and then slowly advanced a 7.5 cm nasal balloon. Really did not fit her due to her small nasal cavity, this 1 is removed and then a new 5.5 is inserted but it was inflated with 4 mL of air this time. This had immediate hemostasis. We then cleaned up the patient, rinsed her mouth well and observed for 20 minutes. Nose bleed well controlled during this time. Counseled patient on options. She is going to continue her amoxicillin. She can use Tylenol as needed for pain. She is given contact information for Dr. Keyes. I would like for him to remove this balloon if possible in 1-2 days. If unable to, primary care follow-up in 48 hours. If she does have repeat bleeding, please return to the emergency room. I let her know that unfortunately swelling of the face and watery discharge from the eye and there may be common. Blood work all reassuring. Written instructions provided. Vital Signs Vital signs: Initial Vital Signs Temperature 98.0 F 02/11/25 05:02 Temperature Source Temporal Artery Scan 02/11/25 05:02 Pulse Rate 106 H 02/11/25 05:02 Pulse Rhythm Regular 02/11/25 05:02 Respiratory Rate 18 02/11/25 05:02 Blood Pressure 131/90 H 02/11/25 05:02 Blood Pressure Mean 103 02/11/25 05:02 Blood Pressure Position Sitting 02/11/25 05:02 Pulse Oximetry 96 02/11/25 05:02 Oxygen Delivery Method Room Air 02/11/25 05:02 Vital Signs Temperature 98.0 F 02/11/25 05:02 Pulse Rate 106 H 02/11/25 05:02 Respiratory Rate 18 02/11/25 05:02 Blood Pressure 131/90 H 02/11/25 05:02 Pulse Oximetry 96 02/11/25 05:02 Oxygen Delivery Method Room Air 02/11/25 05:02 Temperature 98.0 F 02/11/25 05:02 Pulse Rate 106 H 02/11/25 05:02 Respiratory Rate 18 02/11/25 05:02 Blood Pressure 131/90 H 02/11/25 05:02 Pulse Oximetry 96 02/11/25 05:02 Oxygen Delivery Method Room Air 02/11/25 05:02 Medications Administered Medications: Discontinued Medications Generic Name Dose Route Start Last Admin Trade Name Freq PRN Reason Stop Dose Admin Benzocaine 1 each 02/11/25 06:09 02/11/25 06:13 Benzocaine 20 % Gratis NOSTRIL-R 02/11/25 06:10 1 each ONCE ONE Administration Tranexamic Acid 1,000 mg 02/11/25 05:28 02/11/25 05:34 Tranexamic Acid 100 Mg/Ml Inj TOPICAL 02/11/25 05:29 1,000 mg ONCE ONE Administration Medical Decision Making Lab Data Lab results reviewed: Yes I reviewed the patient's lab results Lab results narrative: Labs reassuring. Labs: Lab Results 02/11/25 Range/Units 05:50 WBC 9.40 (4.50-11.00) K/uL RBC 5.36 H (4.00-5.20) m/uL Hgb 16.1 H (12.0-16.0) gm/dL Hct 48.4 (33.0-51.0) % MCV 90 (80-100) fL MCH 30 (26-34) pg MCHC 33 (32-36) gm/dL RDW Coeff of Tk 12.8 (11.5-15.5) % Plt Count 349 (140-440) K/uL Neut % (Auto) 64.4 (42.0-72.0) % Lymph % (Auto) 27.6 (20-44) % Worth % (Auto) 5.7 (0.0-11.0) % Eos % (Auto) 1.7 (0.0-7.0) % Baso % (Auto) 0.4 (0.0-3.0) % Neut # (Auto) 6.05 (1.7-7.0) K/uL Lymph # (Auto) 2.59 (0.90-2.90) K/uL Worth # (Auto) 0.50 (0.00-0.90) K/UL Eos # (Auto) 0.16 (0.00-0.50) K/uL Baso # (Auto) 0.04 (0.00-0.30) K/uL Abs Immat Gran (auto) 0.02 (0.00-0.30) K/uL Imm/Tot Granulo (auto) 0.2 % INR 0.85 L (0.91-1.10) Sodium 136 (135-149) mmol/L Potassium 3.7 (3.6-5.1) mmol/L Chloride 103 (96-114) mmol/L Carbon Dioxide 27 (20-32) mmol/L Anion Gap 6 L (7-15) mEq/L BUN 15 (7-30) mg/dL Creatinine 0.8 (0.5-1.5) mg/dL Estimated Creat Clear 77.01 Estimated GFR 89 ml/min Glucose 138 H (60-115) mg/dL Calcium 10.0 (8.4-10.6) mg/dL Discharge Plan Discharge Clinical Impression: Recurrent epistaxis Patient Disposition: Home, Self-Care Condition: Improved Instructions: Nosebleed (ED) Additional Instructions: I am sorry that these nosebleeds keep happening. Your blood work today does not reflect any metabolic reason why this is happening, which is good news. Unfortunately, I think that the balloon that was put in yesterday lost its pressure. This does happen sometimes. The new balloon was put in with more pressure and the bleeding has nicely. . Continue on the antibiotics that your prescribed and use Tylenol as needed for discomfort. It is okay to use melatonin and or Benadryl for a dental sleep aid. Please call Dr. Keyes office. Ideally, I would like for him to see this nose bleed since you have been having so much trouble. His office is [phone] in [place]. I seem to remember him being at that office on Tuesdays. Please try to get an appointment for Tuesday or Tuesday. If 1 is not available, please make an appointment with a primary care provider to have the nasal packing removed on Tuesday. If the bleeding starts abruptly again, please come back to the emergency room. Unfortunately, it is common for the eye to water, the nose to water and for the face to swell with this balloon in place. Off of work for the next 2 days. Activity Level: Activity as Tolerated Discharge Diet: Regular Prescriptions: No Action atomoxetine 40 mg capsule 40 mg PO QAM atomoxetine 80 mg capsule 80 mg PO QAM hydroxyzine HCl 25 mg tablet 25 mg PO DAILY atomoxetine 25 mg capsule PO fluoxetine 40 mg capsule 40 mg PO QDAY lamotrigine 200 mg tablet 200 mg PO QDAY Follow Up/Referrals: Provider,Not a Local [Primary Care Provider, Family Practice] Stand Alone Forms: [employer] Info Instructions
== END 2025-02-11 07:09 | disposition home or self-care (01) ==
PROVIDERS: Emergency Provider Family Medicine
DX: R04.0 Epistaxis (principal)
CPT/HCPCS: 30901; 36415; 80048; 85025; 85610; 99283; A9270